=== PATIENT | male | born 1975 | race Caucasian/White ===

== ENCOUNTER 2017-05-19 15:34 | Emergency (ER) | payer MEDICAID ==
[~2017-05-19] VITALS: Ht 172.7 cm; Wt 75.0 kg
[2017-05-19 15:38] VITALS: Ht 172.7 cm; Wt 75.0 kg
[2017-05-19 16:35] LABS: BASOPHILS % 0.5 % (0.0-2.0); EOSINOPHILS # 0.3 10^3/ul (0.0-0.5); EOSINOPHILS % 2.9 % (0.0-7.0); HEMATOCRIT 36.4 % (42.0-52.0); HEMOGLOBIN 11.5 g/dl (14.0-18.0); LYMPHOCYTES # 1.8 10^3/ul (0.8-2.9); LYMPHOCYTES % 20.4 % (15.0-51.0); MEAN CORPUSCULAR HEMOGLOBIN 26.6 pg (29.0-33.0); MEAN CORPUSCULAR HGB CONC 31.6 g/dl (32.0-37.0); MEAN CORPUSCULAR VOLUME 84.1 fl (82.0-101.0); MEAN PLATELET VOLUME 8.2 fl (7.4-10.4); MONOCYTE # 0.7 10^3/ul (0.3-0.9); MONOCYTES % 8.1 % (0.0-11.0); NEUTROPHILS % 67.2 % (39.0-77.0); PLATELET COUNT 270 10^3/UL (140-415); RED BLOOD COUNT 4.33 10^6/ul (4.70-6.10); WHITE BLOOD COUNT 8.9 10^3/ul (4.8-10.8)
--- NOTE | 2017-05-19 16:50 | PSY ---
Date/Time of Note Date/Time of Note DATE: 05/19/17 TIME: 16:45 Psychiatric Subjective Eval Consent Pt consented to telemedicine: Yes Subjective Evaluation Patient location: emergency Chief Complaint: Patients states that he is having Suicidal thoughts Reason for consult: Suicidal ideation History of present illness Pt is a 41 year old male with a reported history of schizophrenia, depression and ptsd. He was released from an inpatient unit one week ago and was supposed to be moving into a new place to live on Monday. In the meantime, he has been staying at a [employer] (except last night, he slept outside). Pt reports there is some bank hold up which is preventing him from moving and he is very confused and anxious. Patient states he hears voices and has paranoid thoughts. He is having suicidal thinking but no acute plan. He is very concerned about what is happening and is not sure how to handle it. Pt presented to the ER because he was feeling confused and having suicidal thoughts. Past psychiatric history As noted above. Multiple inpatient admissions. At 18 years old came close to overdosing but did not follow through. He takes 15mg of Abilify, 60 to 80mg of Prozac and Xanax 1-2mg as needed Hospitalization: yes Family History Mom appears to have had issues Medical history Denies Substance Abuse Substance use: No known substance abuse Social History Marital status: single Level of education: HS Occupation/Nursing Home: NA Psychiatric Objective Eval Mental Status Examination: Appearance: Poor Hygiene Eye Contact: Good Psychomotor Activity: Slow Behavior: Guarded Speech: Soft AFFECT: Flat Mood: Anxious Though Process: Linear Thought Content: Hallucinations Suicidal: Yes Homicidal: No On 72 hour hold: No Orientation: x3 Cognition: Alert Insight: Intact Judgement: Intact Attention Span: Intact Laboratory Results Laboratory Tests Test 05/19/17 16:20 White Blood Count 8.910^3/ul Red Blood Count 4.3310^6/ul Hemoglobin 11.5g/dl Hematocrit 36.4% Mean Corpuscular Volume 84.1fl Mean Corpuscular Hemoglobin 26.6pg Mean Corpuscular Hemoglobin Concent 31.6g/dl Red Cell Distribution Width 16.0% Platelet Count 29687^3/UL Mean Platelet Volume 8.2fl Neutrophils % 67.2% Lymphocytes % 20.4% Monocytes % 8.1% Eosinophils % 2.9% Basophils % 0.5% Nucleated Red Blood Cells % 0.0/100WBC Neutrophils # 6.010^3/ul Lymphocytes # 1.810^3/ul Monocytes # 0.710^3/ul Eosinophils # 0.310^3/ul Basophils # 0.010^3/ul Nucleated Red Blood Cells # 0.010^3/ul Assessment and Plan Assessment/Diagnosis [place] I: F20.9 Schizophrenia Recommendation/Plan Medication Management Per inpatient psychiatry Psychotherapy NA Pt. Caregiver/Family Education NA Follow-up/Disposition Recommend transfer to inpatient psychiatry. Pt is requesting admission and is voluntary. [id number] Recommendation: Voluntary admission HALEY CARLISLE May 19, 2017 16:50
[2017-05-19 17:01] LABS: ALANINE AMINOTRANSFERASE 40 IU/L (13-69); ALBUMIN 3.8 g/dl (3.3-4.9); ALBUMIN/GLOBULIN RATIO 1.35; ALKALINE PHOSPHATASE 89 IU/L (42-121); ANION GAP 12 (8-16); ASPARTATE AMINO TRANSFERASE 31 IU/L (15-46); BILIRUBIN,INDIRECT 0.1 mg/dl (0-1.1); BILIRUBIN,TOTAL 0.1 mg/dl (0.2-1.3); BLOOD UREA NITROGEN 11 mg/dl (7-20); CALCIUM 9.1 mg/dl (8.4-10.2); CARBON DIOXIDE 30 mmol/L (21-31); CHLORIDE 106 mmol/L (97-110); CREATININE 0.85 mg/dl (0.61-1.24); GLUCOSE 130 mg/dl (70-220); POTASSIUM 4.6 mmol/L (3.5-5.1); SODIUM 143 mmol/L (135-144); TOTAL PROTEIN 6.6 g/dl (6.1-8.1)
[2017-05-19 17:04] LABS: ACETAMINOPHEN < 10.0 ug/ml (10.0-30.0); ETHANOL < 10.0 mg/dl; SALICYLATE < 1.0 mg/dl (5.0-30.0)
--- NOTE | 2017-05-19 17:20 | ERD ---
ER Documentation Chief Complaint Date/Time DATE: 05/19/17 TIME: 17:18 Chief Complaint Patients states that he is having Suicidal thoughts HPI Patient is a 41-year-old male with post traumatic stress disorder, schizophrenia , and depression who presents with "mental problems". He said that he is having posttraumatic stress and depression. He feels suicidal ideation but has no plan at this time. He denies homicidal ideation. He has been having trouble with his living situation as well. Upon review of old medical records this is the patient's first visit to the emergency department. He cannot remember the name of his psychiatrist. ROS All systems reviewed and are negative except as per history of present illness. PMhx/Soc History of Surgery: Yes (right knee surgery ) Hx Psychiatric Problems: Yes (PTSD; SCHIZOPHRERNIA; DEPRESSION) Hx Miscellaneous Medical Probl: Yes (OSLEOSARCOMA) Hx Alcohol Use: No Hx Substance Use: No Hx Tobacco Use: Yes Smoking Status: Current every day smoker FmHx Family History: No diabetes Physical Exam Vitals Vital Signs Date Time Temp Pulse Resp B/P Pulse Ox O2 Delivery O2 Flow Rate FiO2 05/19/17 15:38 98.5 89 20 127/75 98 Physical Exam Const: No acute distress Head: Atraumatic Eyes: Normal Conjunctiva ENT: Normal External Ears, Nose and Mouth. Neck: Full range of motion..~ No meningismus. Resp: Clear to auscultation bilaterally Cardio: Regular rate and rhythm, no murmurs Abd: Soft, non tender, non distended. Normal bowel sounds Skin: Blister to the base of the right foot Back: No midline or flank tenderness Ext: No cyanosis, or edema Neur: Awake and alert Psych: Positive for suicidal ideation without plan Result Diagram: 05/19/17 1620 05/19/17 1620 Results 24 hrs Laboratory Tests Test 05/19/17 16:20 White Blood Count 8.910^3/ul Red Blood Count 4.3310^6/ul Hemoglobin 11.5g/dl Hematocrit 36.4% Mean Corpuscular Volume 84.1fl Mean Corpuscular Hemoglobin 26.6pg Mean Corpuscular Hemoglobin Concent 31.6g/dl Red Cell Distribution Width 16.0% Platelet Count 22422^3/UL Mean Platelet Volume 8.2fl Neutrophils % 67.2% Lymphocytes % 20.4% Monocytes % 8.1% Eosinophils % 2.9% Basophils % 0.5% Nucleated Red Blood Cells % 0.0/100WBC Neutrophils # 6.010^3/ul Lymphocytes # 1.810^3/ul Monocytes # 0.710^3/ul Eosinophils # 0.310^3/ul Basophils # 0.010^3/ul Nucleated Red Blood Cells # 0.010^3/ul Sodium Level 143mmol/L Potassium Level 4.6mmol/L Chloride Level 106mmol/L Carbon Dioxide Level 30mmol/L Anion Gap 12 Blood Urea Nitrogen 11mg/dl Creatinine 0.85mg/dl Glucose Level 130mg/dl Calcium Level 9.1mg/dl Total Bilirubin 0.1mg/dl Direct Bilirubin 0.00mg/dl Indirect Bilirubin 0.1mg/dl Aspartate Amino Transf (AST/SGOT) 31IU/L Alanine Aminotransferase (ALT/SGPT) 40IU/L Alkaline Phosphatase 89IU/L Total Protein 6.6g/dl Albumin 3.8g/dl Globulin 2.80g/dl Albumin/Globulin Ratio 1.35 Salicylates Level < 1.0mg/dl Acetaminophen Level < 10.0ug/ml Ethyl Alcohol Level < 10.0mg/dl Procedures/MDM Patient is a 41-year-old male presents with acute suicidal ideation. He has no plan at this time. He had a psychiatric evaluation who recommended a transfer for inpatient psychiatric treatment whether voluntary or involuntary. I believe that voluntary admission would be reasonable as the patient is agreeable. There is no sign of serious medical issue at this time. He has anemia but does not require transfusion. The rest of his laboratory studies are normal. Patient is now medically clear for psychiatric transfer. Departure Diagnosis: Primary Impression: Suicidal ideation Condition: DANNY Ferreira MD May 19, 2017 17:20
[2017-05-19 19:47] LABS: ADD UMIC YES; UR ASCORBIC ACID 40 mg/dL (NEGATIVE); UR BACTERIA FEW /HPF (NONE SEEN); UR BILIRUBIN (Dip) NEGATIVE (NEGATIVE); UR BLOOD (Dip) NEGATIVE (NEGATIVE); UR CLARITY CLOUDY (CLEAR); UR COLOR YELLOW (YELLOW); UR GLUCOSE (Dip) NEGATIVE (NEGATIVE); UR KETONES (Dip) NEGATIVE (NEGATIVE); UR LEUKOCYTE ESTERASE (Dip) NEGATIVE Leu/ul (NEGATIVE); UR NITRITE (Dip) NEGATIVE (NEGATIVE); UR RBC 3 /HPF (0-5); UR SPECIFIC GRAVITY (Dip) 1.019 (1.003-1.030); UR TOTAL PROTEIN (Dip) NEGATIVE (NEGATIVE); UR UROBILINOGEN (Dip) NEGATIVE (NEGATIVE)
[2017-05-19 19:50] LABS: BARBITURATES Negative (NEGATIVE); BENZODIAZEPINES Negative (NEGATIVE); CANNABINOIDS Positive (NEGATIVE); COCAINE Negative (NEGATIVE); OPIATES Negative (NEGATIVE)
[2017-05-19] MEDS ORDERED: IBUPROFEN 800 MG TAB PO ONE (20:30)
[2017-05-19 23:11] VITALS: BP 124/87; PULSE 63; RESP 20
== END 2017-05-19 23:13 | disposition short-term general hospital (02) ==
LOC: E/R 15:34
DX: R45.851 Suicidal ideations (principal); F17.210 Nicotine dependence, cigarettes, uncomplicated; R40.2142 Coma scale, eyes open, spontaneous, at arrival to emergency department; R40.2252 Coma scale, best verbal response, oriented, at arrival to emergency department; R40.2362 Coma scale, best motor response, obeys commands, at arrival to emergency department
CPT/HCPCS: 80053; 80306; 80307; 81001; 85025; Z7502; Z7610

== ENCOUNTER 2017-07-26 10:19 | Emergency (ER) | payer SELFPAY ==
[2017-07-26] MEDS ORDERED: BUPR-75 PO (17:31)
[2017-07-26] MEDS ORDERED: ALPR2TAB PO (17:31)
[2017-07-26] MEDS ORDERED: FLUO20CA38 PO (17:31)
== END 2017-07-26 11:54 | disposition left against medical advice (07) ==
LOC: E/R 10:19
DX: Z53.21 Procedure and treatment not carried out due to patient leaving prior to being seen by health care provider (principal)

== ENCOUNTER 2017-07-26 16:31 | Emergency (ER) | payer MEDICAID ==
[~2017-07-26] VITALS: Wt 79.8 kg
[2017-07-26] MEDS ORDERED: ALPR2TAB PO (17:31)
[2017-07-26] MEDS ORDERED: FLUO20CA38 PO (17:31)
[2017-07-26] MEDS ORDERED: BUPR-75 PO (17:31)
--- NOTE | 2017-07-26 17:37 | ERD ---
ER Documentation Chief Complaint Chief Complaint med refills HPI This is a 41-year-old male presents today for medication refill. Patient states he will see his primary care doctor on August 05 and is requesting Prozac, Wellbutrin and Xanax. Patient is asymptomatic at this time. ROS 12 point review of systems was done, all negative except per HPI. Medications Home Meds Active Scripts Alprazolam* (Xanax*) 2 Mg Tablet, 2 MG PO Q8H Y for ANXIETY, #10 TAB Prov:SUSANTIMGINI C 07/26/17 Fluoxetine Hcl* (Prozac*) 20 Mg Capsule, 60 MG PO DAILY for 18 Days, CAP Prov:SUSAN,GINI C 07/26/17 Bupropion Hcl* (Wellbutrin XL*) 150 Mg Tab.sr.24h, 150 MG PO DAILY for 18 Days, TAB.SA Prov:SUSANGINI C 07/26/17 PMhx/Soc History of Surgery: Yes (right knee surgery ) Hx Psychiatric Problems: Yes (PTSD; SCHIZOPHRERNIA; DEPRESSION) Hx Miscellaneous Medical Probl: Yes (OSLEOSARCOMA) Hx Alcohol Use: No Hx Substance Use: No Hx Tobacco Use: Yes Smoking Status: Current every day smoker Physical Exam Vitals Vital Signs Date Time Temp Pulse Resp B/P Pulse Ox O2 Delivery O2 Flow Rate FiO2 07/26/17 16:33 98.7 110 20 124/81 97 Physical Exam GENERAL: The patient is well developed and appropriate for usual state of health , in no apparent distress. HEENT: Atraumatic. CHEST: Clear to auscultation bilaterally. There are no rales, wheezes or rhonchi. HEART: Regular rate and rhythm. No murmurs, clicks, rubs or gallops. NEURO: Alert and oriented. SKIN: The skin is warm and dry. Procedures/MDM This is a 41-year-old male presents to the ER for medication refill. Patient is currently asymptomatic. Patient will be given his medication, Xanax will only be given a small amount. To follow-up with his primary care doctor within 1-2 days return to ER sooner if symptoms worsen. My medical decision making sure with the patient understands and agrees to plan. Departure Diagnosis: Primary Impression: Encounter for medication refill Condition: Stable Patient Instructions: Taking Medicine Safely Additional Instructions: Call your primary care doctor TOMORROW for an appointment during the next 1-2 days.See the doctor sooner or return here if your condition worsens before your appointment time. GINI DAVIS Jul 26, 2017 17:37
== END 2017-07-26 18:07 | disposition home or self-care (01) ==
LOC: FTE 16:31
DX: Z76.0 Encounter for issue of repeat prescription (principal); F17.210 Nicotine dependence, cigarettes, uncomplicated
CPT/HCPCS: 99281

== ENCOUNTER 2017-08-31 14:31 | Emergency (ER) | END 2017-08-31 19:58 | disposition left against medical advice (07) ==

== ENCOUNTER 2017-09-04 14:04 | Emergency (ER) | END 2017-09-04 15:57 | disposition home or self-care (01) ==

== ENCOUNTER 2017-10-13 11:46 | Emergency (ER) | END 2017-10-13 14:44 | disposition home or self-care (01) ==

== ENCOUNTER 2017-12-08 06:40 | Emergency (ER) | END 2017-12-08 16:14 ==

== ENCOUNTER 2018-02-21 14:51 | Emergency (ER) | END 2018-02-22 08:58 ==

== ENCOUNTER 2018-02-27 16:59 | Emergency (ER) | END 2018-02-27 18:40 | disposition home or self-care (01) ==

== ENCOUNTER 2018-03-08 16:50 | Emergency (ER) | END 2018-03-08 19:40 | disposition left against medical advice (07) ==

== ENCOUNTER 2018-03-23 19:43 | Emergency (ER) | END 2018-03-23 20:31 | disposition home or self-care (01) ==

== ENCOUNTER 2018-04-05 12:04 | Emergency (ER) | END 2018-04-05 13:04 | disposition home or self-care (01) ==

== ENCOUNTER 2018-04-21 13:59 | Emergency (ER) | END 2018-04-22 00:55 ==

== ENCOUNTER 2018-05-03 11:38 | Emergency (ER) | END 2018-05-03 13:32 | disposition home or self-care (01) ==

== ENCOUNTER 2018-07-07 08:28 | Emergency (ER) | END 2018-07-07 09:44 | disposition home or self-care (01) ==

== ENCOUNTER 2018-07-20 06:06 | Emergency (ER) | END 2018-07-20 17:37 ==

== ENCOUNTER 2018-08-20 18:12 | Emergency (ER) | payer OTHER ==
[~2018-08-20] VITALS: Ht 172.7 cm; Wt 83.7 kg
[~2018-08-20 18:12] MED LIST: ALPR2TAB PO; ARIP30TA4 PO; BUPR-165 PO; BUPR-75 PO; BUSP10TA2 PO; FLUO20CA38 PO; FLUO40CA10 PO; HYDR-4011 PO
[2018-08-20 18:14] VITALS: Ht 172.7 cm; Wt 83.7 kg
--- NOTE | 2018-08-20 19:28 | ERD ---
ER Documentation Chief Complaint Chief Complaint FELT LIKE HURTING SELF HAS FINACIAL PROBLEMS HPI This is a 42-year-old male known by me who is here for depression and stress reaction. Patient tells me that he is having a lot of financial struggles and was expecting some money to come in and today he learned that it is not going to come. He said this overwhelmed him because now he is bankrupt. He says he is stressing out about the financial situation in his life came here because he does not know what else to do. He says he takes Abilify and Depakote and has been taking them. He repeated to me twice that he is not suicidal or homicidal, but does not know what to do about his situation and feels overwhelmed about it and just wants to talk to a psychiatrist because he thinks he needs medication adjustments ROS All systems reviewed and are negative except as per history of present illness. Medications Home Meds Active Scripts Alprazolam* (Xanax*) 0.5 Mg Tab, 0.5 MG PO Q8H PRN for ANXIETY, #10 TAB Prov:ONEAL BANERJEE DO 08/20/18 Aripiprazole* (Abilify*) 30 Mg Tablet, 30 MG PO DAILY, #30 TAB Prov:JOSÉ MIGUEL CALLAWAY MD 07/07/18 Buspirone Hcl* (Buspirone Hcl*) 10 Mg Tab, 10 MG PO DAILY, #30 TAB Prov:JOSÉ MIGUEL CALLAWAY MD 07/07/18 Bupropion Hcl* (Wellbutrin XL*) 150 Mg Tab.sr.24h, 150 MG PO DAILY, #30 TAB.SA Prov:JOSÉ MIGUEL CALLAWAY MD 07/07/18 Fluoxetine Hcl* (Prozac*) 40 Mg Capsule, 60 MG PO DAILY, #30 CAP Prov:JOSÉ MIGUEL CALLAWAY MD 07/07/18 Alprazolam* (Xanax*) 2 Mg Tablet, 2 MG PO Q8H PRN for ANXIETY, #20 TAB Prov:JOSÉ MIGUEL CALLAWAY MD 07/07/18 Fluoxetine Hcl* (Prozac*) 20 Mg Capsule, 60 MG PO DAILY, #90 CAP Prov:MING MIRZA PA-C 05/03/18 Aripiprazole* (Abilify*) 30 Mg Tablet, 30 MG PO DAILY, #30 TAB Prov:MNIG MIRZA PA-C 05/03/18 Alprazolam* (Xanax*) 2 Mg Tablet, 2 MG PO Q8H PRN for ANXIETY, #4 TAB Prov:MING MIRZA PA-C 05/03/18 Bupropion Hcl* (Wellbutrin SR*) 150 Mg Tablet.sa, 150 MG PO DAILY, #30 TAB.SA Prov:MING MIRZA PA-C 05/03/18 Hydrocodone/Acetaminophen ([place] 5-325 Tablet) 1 Each Tablet, 1 TAB PO Q6H PRN for PAIN, #10 TAB Prov:GIAN OCAMPO DO 04/05/18 Fluoxetine Hcl* (Prozac*) 20 Mg Capsule, 60 MG PO DAILY, #42 CAP Prov:DIAMOND SHIPMAN PA-C 03/23/18 Alprazolam* (Xanax*) 2 Mg Tablet, 2 MG PO Q8H PRN for ANXIETY, #5 TAB Prov:DIAMOND SHIPMAN PA-C 03/23/18 Reported Medications Bupropion Hcl* (Wellbutrin XL*) 150 Mg Tab.sr.24h, 150 MG PO DAILY, TAB.SA 12/08/17 Allergies Allergies: Coded Allergies: No Known Allergy (Unverified , 05/03/18) PMhx/Soc History of Surgery: No Anesthesia Reaction: No Hx Neurological Disorder: No Hx Respiratory Disorders: No Hx Cardiac Disorders: No Hx Psychiatric Problems: Yes (depression and anxiety) Hx Miscellaneous Medical Probl: No Hx Alcohol Use: No Hx Substance Use: No Hx Tobacco Use: No FmHx Family History: No coronary disease Physical Exam Vitals Vital Signs Date Temp Pulse Resp B/P (MAP) Pulse Ox O2 O2 Flow FiO2 Time Delivery Rate 08/20/18 97.5 113 18 141/92 100 18:14 (108) Physical Exam Const: Well-developed, well-nourished Head: Atraumatic, normocephalic Eyes: Normal Conjunctiva, PERRLA, EOMI, normal sclera, no nystagmus ENT: Normal External Ears, Nose and Mouth, moist mucus membranes. Neck: Full range of motion. No meningismus, no lymphadenopathy. Resp: Clear to auscultation bilaterally, no wheezing, rhonchi, rales Cardio: Regular rate and rhythm, no murmurs, S1 S2 present Abd: Soft, non tender x 4, non distended. Normal bowel sounds, no guarding or rebound, no pulsitile abdominal masses or bruits Skin: No petechiae or rashes, no ecchymosis , no maculopapular rash Back: No midline or flank tenderness Ext: No cyanosis, or edema, FROM x 4, normal inspection, neurovascularly intact x 4 Neur: Awake and alert, STR 5/5 x 4, sensation intact x 4, no focal findings, cerebellum intact Psych: Flat affect Results 24 hrs Current Medications Medications Dose Sig/Jamel Start Time Status Last (Trade) Ordered Route PRN Stop Time Admin Dose Reason Admin Alprazolam 0.5 mg ONCE ONCE 08/20/18 (Xanax) PO 21:00 08/20/18 21:01 Procedures/MDM We will have a telemetry psychiatrist to speak with him now There is no psychiatrist available. Had extensive discussion with the patient, he is not suicidal or homicidal he just feels overwhelmed with financial stress. He is just asking for something to help him calm down to once a Xanax. Gave the patient strict warning signs to return. Patient feels much better at this time, and vital signs are normal, symptoms have improved. I did give strict instructions to return to the ED if symptoms continue or worsen, patient will otherwise follow-up with primary care physician. Patient understood instructions and agreed to plan. Disclaimer: Inadvertent spelling and grammatical errors are likely due to EHR/dictation software use and do not reflect on the overall quality of patient care. Also, please note that the electronic time recorded on this note does not necessarily reflect the actual time of the patient encounter. Departure Diagnosis: Primary Impression: Depression Depression Type: unspecified Qualified Codes: F32.9 - Major depressive disorder, single episode, unspecified Condition: ONEAL Prieto DO Aug 20, 2018 19:28
[2018-08-20] MEDS ORDERED: ALPR0.5T PO (20:42)
[2018-08-20] MEDS ORDERED: ALPRAZOLAM 0.25 MG TAB PO ONE (21:00)
[2018-08-20 21:02] VITALS: BP 133/74; PULSE 78; RESP 20
== END 2018-08-20 21:07 | disposition home or self-care (01) ==
LOC: E/R 18:12
DX: F32.9 Major depressive disorder, single episode, unspecified (principal); R40.2142 Coma scale, eyes open, spontaneous, at arrival to emergency department; R40.2362 Coma scale, best motor response, obeys commands, at arrival to emergency department; R40.2252 Coma scale, best verbal response, oriented, at arrival to emergency department
CPT/HCPCS: Z7502; Z7610; 99283

== ENCOUNTER 2018-09-15 07:03 | Emergency (ER) | payer OTHER ==
[~2018-09-15] VITALS: Wt 78.0 kg
[~2018-09-15 07:03] MED LIST changes: +ALPR0.5T PO
[2018-09-15 07:07] VITALS: BP 149/90; PULSE 90; RESP 18
[2018-09-15] MEDS ORDERED: FLUO40CA PO (08:03)
[2018-09-15] MEDS ORDERED: BUPR-165 PO (08:03)
[2018-09-15] MEDS ORDERED: ALPR2TAB PO (08:03)
--- NOTE | 2018-09-15 08:06 | ERD ---
ER Documentation Chief Complaint Chief Complaint med refill HPI 42-year-old male presents with a history of anxiety depression requesting a refill of his medication. He is having difficulty with some insurance and financial issues. He is hoping to have a primary care and psychiatry service next week. Denies any homicidal or suicidal ideation. He has been here before for suicidal ideation but denies currently. ROS All systems reviewed and are negative except as per history of present illness. Medications Home Meds Active Scripts Alprazolam* (Xanax*) 2 Mg Tablet, 2 MG PO q day PRN for ANXIETY, #14 TAB Prov:BASHIR JAIN MD 09/15/18 Bupropion Hcl* (Wellbutrin SR*) 150 Mg Tablet.sa, 150 MG PO DAILY, #30 TAB.SA Prov:BASHIR JAIN MD 09/15/18 Fluoxetine Hcl* (Fluoxetine Hcl*) 40 Mg Capsule, 80 MG PO DAILY, #60 CAP Prov:BASHIR JAIN MD 09/15/18 Alprazolam* (Xanax*) 0.5 Mg Tab, 0.5 MG PO Q8H PRN for ANXIETY, #10 TAB Prov:ONEAL BANERJEE DO 08/20/18 Aripiprazole* (Abilify*) 30 Mg Tablet, 30 MG PO DAILY, #30 TAB Prov:JOSÉ MIGUEL CALLAWAY MD 07/07/18 Buspirone Hcl* (Buspirone Hcl*) 10 Mg Tab, 10 MG PO DAILY, #30 TAB Prov:JOSÉ MIGUEL CALLAWAY MD 07/07/18 Bupropion Hcl* (Wellbutrin XL*) 150 Mg Tab.sr.24h, 150 MG PO DAILY, #30 TAB.SA Prov:JOSÉ MIGUEL CALLAWAY MD 07/07/18 Fluoxetine Hcl* (Prozac*) 40 Mg Capsule, 60 MG PO DAILY, #30 CAP Prov:JOSÉ MIGUEL CALLAWAY MD 07/07/18 Alprazolam* (Xanax*) 2 Mg Tablet, 2 MG PO Q8H PRN for ANXIETY, #20 TAB Prov:JOSÉ MIGUEL CALLAWYA MD 07/07/18 Fluoxetine Hcl* (Prozac*) 20 Mg Capsule, 60 MG PO DAILY, #90 CAP Prov:MING MIRZA PA-C 05/03/18 Aripiprazole* (Abilify*) 30 Mg Tablet, 30 MG PO DAILY, #30 TAB Prov:MING MIRZA PA-C 05/03/18 Alprazolam* (Xanax*) 2 Mg Tablet, 2 MG PO Q8H PRN for ANXIETY, #4 TAB Prov:MING MIRZA PA-C 05/03/18 Bupropion Hcl* (Wellbutrin SR*) 150 Mg Tablet.sa, 150 MG PO DAILY, #30 TAB.SA Prov:MING MIRZA PA-C 05/03/18 Hydrocodone/Acetaminophen ([place] 5-325 Tablet) 1 Each Tablet, 1 TAB PO Q6H PRN for PAIN, #10 TAB Prov:GIAN OCAMPO DO 04/05/18 Fluoxetine Hcl* (Prozac*) 20 Mg Capsule, 60 MG PO DAILY, #42 CAP Prov:DIAMOND SHIPMAN PA-C 03/23/18 Alprazolam* (Xanax*) 2 Mg Tablet, 2 MG PO Q8H PRN for ANXIETY, #5 TAB Prov:DIAMOND SHIPMAN PA-C 03/23/18 Reported Medications Bupropion Hcl* (Wellbutrin XL*) 150 Mg Tab.sr.24h, 150 MG PO DAILY, TAB.SA 12/08/17 Allergies Allergies: Coded Allergies: No Known Allergy (Unverified , 05/03/18) PMhx/Soc History of Surgery: No Anesthesia Reaction: No Hx Neurological Disorder: No Hx Respiratory Disorders: No Hx Cardiac Disorders: No Hx Psychiatric Problems: Yes (depression and anxiety) Hx Miscellaneous Medical Probl: No Hx Alcohol Use: No Hx Substance Use: No Hx Tobacco Use: No FmHx Family History: No diabetes, No coronary disease, No other Physical Exam Vitals Vital Signs Date Temp Pulse Resp B/P (MAP) Pulse Ox O2 O2 Flow FiO2 Time Delivery Rate 09/15/18 98.1 90 18 149/90 99 07:07 (109) Physical Exam Const: No acute distress Head: Atraumatic Eyes: Normal Conjunctiva ENT: Normal External Ears, Nose and Mouth. Neck: Full range of motion. No meningismus. Resp: Clear to auscultation bilaterally Cardio: Regular rate and rhythm, no murmurs Abd: Soft, non tender, non distended. Normal bowel sounds Skin: No petechiae or rashes Back: No midline or flank tenderness Ext: No cyanosis, or edema Neur: Awake and alert Psych: Normal Mood and Affect. Denies homicidal or suicidal ideations. Procedures/MDM Patient notes with request for refill for fluoxetine, Wellbutrin, Xanax. Patient was given a short course until he can see his primary doctor or psychiatry. Patient denies any homicidal or suicidal ideation is able to navigate the community without signs or symptoms of grave disability. Patient was advised on taking medication safely, avoiding driving, operating heavy machinery and only take benzodiazepine infrequently as needed. Cures review shows last 1 week supply of alprazolam 24 days ago. the patient was stable with no new complaints during the ER course. Clinically, there is no current evidence to suggest meningitis, sepsis, acute abdomen, pneumonia, stroke, acute coronary syndrome, pulmonary embolism, aortic dissection or any other emergent condition appearing to require further evaluation or hospitalization. Patient counseled regarding my diagnostic impression and care plan. Prior to discharge all questions answered. Pt agrees with treatment plan and understands strict return precautions. Pt is instructed to follow up with primary care provider within 24- 48 hours. Precautionary instructions provided including instructions to return to the ER if not improving or for any worsening or changing symptoms or concerns. Departure Diagnosis: Primary Impression: Encounter for medication refill Additional Impression: Psychiatric diagnosis Condition: Stable Patient Instructions: Taking Medicine Safely Referrals: [facility] YOU HAVE RECEIVED A MEDICAL SCREENING EXAM AND THE RESULTS INDICATE THAT YOU DO NOT HAVE A CONDITION THAT REQUIRES URGENT TREATMENT IN THE EMERGENCY DEPARTMENT. FURTHER EVALUATION AND TREATMENT OF YOUR CONDITION CAN WAIT UNTIL YOU ARE SEEN IN YOUR DOCTORS OFFICE WITHIN THE NEXT 1-2 DAYS. IT IS YOUR RESPONSIBILITY TO MAKE AN APPOINTMENT FOR FOLOW-UP CARE. IF YOU HAVE A PRIMARY DOCTOR --you should call your primary doctor and schedule an appointment IF YOU DO NOT HAVE A PRIMARY DOCTOR YOU CAN CALL OUR PHYSICIAN REFERRAL HOTLINE AT IF YOU CAN NOT AFFORD TO SEE A PHYSICIAN YOU CAN CHOSE FROM THE FOLLOWING [facility] CLINICS [facility] [address] [facility]. [facility] [address] [facility]. [facility] [address] [facility] [address] [facility] [address] [facility]. [facility] [address] Additional Instructions: See primary doctor for follow-up or for new or worsening symptoms. BASHIR JAIN MD Sep 15, 2018 08:06
== END 2018-09-15 08:30 | disposition home or self-care (01) ==
LOC: FTE 07:03
DX: F99 Mental disorder, not otherwise specified (principal)
CPT/HCPCS: 99281

== ENCOUNTER 2018-10-08 06:36 | Emergency (ER) | payer OTHER ==
[~2018-10-08] VITALS: Ht 167.6 cm; Wt 81.8 kg
[~2018-10-08 06:36] MED LIST changes: +FLUO40CA PO
[2018-10-08 06:38] VITALS: BP 153/110; PULSE 100; RESP 20; Ht 167.6 cm; Wt 81.8 kg
[2018-10-08] MEDS ORDERED: ARIP30TA4 PO (08:36)
[2018-10-08] MEDS ORDERED: DIVA-16 PO (08:36)
--- NOTE | 2018-10-08 08:50 | ERD ---
ER Documentation Chief Complaint Chief Complaint Patient here to refill his psych meds Abilify and Depakote HPI 42-year-old male presents for medication refill. Patient would like his Abilify and Depakote refilled. He states that the Depakote has really helped him and he is going to follow-up with a psychiatrist in order to be properly managed with this medication but in the meantime would like to refill to get him through until then. Denies any suicidal or homicidal ideation. Denies hallucinations. Unspecified psychiatric condition, otherwise no history. Denies allergies. Denies surgeries. Denies alcohol, tobacco, drug use. Up to date on vaccines. ROS All systems reviewed and are negative except as per history of present illness. Medications Home Meds Active Scripts Aripiprazole* (Abilify*) 30 Mg Tablet, 30 MG PO DAILY, #30 TAB Prov:ROLAND EPPS 10/08/18 Divalproex Sodium* (Divalproex Sodium*) 500 Mg Tablet.dr, 500 MG PO BID, #28 TAB Prov:ROLAND EPPS 10/08/18 Alprazolam* (Xanax*) 2 Mg Tablet, 2 MG PO q day PRN for ANXIETY, #14 TAB Prov:BASHIR JAIN MD 09/15/18 Bupropion Hcl* (Wellbutrin SR*) 150 Mg Tablet.sa, 150 MG PO DAILY, #30 TAB.SA Prov:BASHIR JAIN MD 09/15/18 Fluoxetine Hcl* (Fluoxetine Hcl*) 40 Mg Capsule, 80 MG PO DAILY, #60 CAP Prov:BASHIR JAIN MD 09/15/18 Alprazolam* (Xanax*) 0.5 Mg Tab, 0.5 MG PO Q8H PRN for ANXIETY, #10 TAB Prov:ONEAL BANERJEE DO 08/20/18 Buspirone Hcl* (Buspirone Hcl*) 10 Mg Tab, 10 MG PO DAILY, #30 TAB Prov:JOSÉ MIGUEL CALLAWAY MD 07/07/18 Bupropion Hcl* (Wellbutrin XL*) 150 Mg Tab.sr.24h, 150 MG PO DAILY, #30 TAB.SA Prov:JOSÉ MIGUEL CALLAWAY MD 07/07/18 Fluoxetine Hcl* (Prozac*) 40 Mg Capsule, 60 MG PO DAILY, #30 CAP Prov:JOSÉ MIGUEL CALLAWAY MD 07/07/18 Alprazolam* (Xanax*) 2 Mg Tablet, 2 MG PO Q8H PRN for ANXIETY, #20 TAB Prov:JOSÉ MIGUEL CALLAWAY MD 07/07/18 Fluoxetine Hcl* (Prozac*) 20 Mg Capsule, 60 MG PO DAILY, #90 CAP Prov:MING MIRZA PA-C 05/03/18 Aripiprazole* (Abilify*) 30 Mg Tablet, 30 MG PO DAILY, #30 TAB Prov:MING MIRZA PA-C 05/03/18 Alprazolam* (Xanax*) 2 Mg Tablet, 2 MG PO Q8H PRN for ANXIETY, #4 TAB Prov:MING MIRZA PA-C 05/03/18 Bupropion Hcl* (Wellbutrin SR*) 150 Mg Tablet.sa, 150 MG PO DAILY, #30 TAB.SA Prov:MING MIRZA PA-C 05/03/18 Hydrocodone/Acetaminophen ([place] 5-325 Tablet) 1 Each Tablet, 1 TAB PO Q6H PRN for PAIN, #10 TAB Prov:GIAN OCAMPO DO 04/05/18 Fluoxetine Hcl* (Prozac*) 20 Mg Capsule, 60 MG PO DAILY, #42 CAP Prov:DIAMOND SHIPMAN PA-C 03/23/18 Alprazolam* (Xanax*) 2 Mg Tablet, 2 MG PO Q8H PRN for ANXIETY, #5 TAB Prov:DIAMOND SHIPMAN PA-C 03/23/18 Reported Medications Bupropion Hcl* (Wellbutrin XL*) 150 Mg Tab.sr.24h, 150 MG PO DAILY, TAB.SA 12/08/17 Allergies Allergies: Coded Allergies: No Known Allergy (Unverified , 05/03/18) PMhx/Soc History of Surgery: No Anesthesia Reaction: No Hx Neurological Disorder: No Hx Respiratory Disorders: No Hx Cardiac Disorders: No Hx Psychiatric Problems: Yes (depression and anxiety) Hx Miscellaneous Medical Probl: No Hx Alcohol Use: No Hx Substance Use: No Hx Tobacco Use: No FmHx Family History: No diabetes, No coronary disease, No other Physical Exam Vitals Vital Signs Date Temp Pulse Resp B/P (MAP) Pulse Ox O2 O2 Flow FiO2 Time Delivery Rate 10/08/18 97.3 100 20 153/110 100 06:38 (124) Physical Exam Const: No acute distress Head: Atraumatic Eyes: Normal Conjunctiva ENT: Normal External Ears, Nose and Mouth. Neck: Full range of motion. No meningismus. Resp: Clear to auscultation bilaterally Cardio: Regular rate and rhythm, no murmurs Abd: Soft, non tender, non distended. Normal bowel sounds Skin: No petechiae or rashes Back: No midline or flank tenderness Ext: No cyanosis, or edema Neur: Awake and alert Psych: Normal Mood and Affect Procedures/MDM 42-year-old male presents for medication refill. Patient would like his Abilify and Depakote refilled. He states that the Depakote has really helped him and he is going to follow-up with a psychiatrist in order to be properly managed with this medication but in the meantime would like to refill to get him through until then. I have low first suspicion for acute psychosis, suicidal or homicidal ideation, meningitis, or other emergent condition. Patient was given refill for Abilify and Depakote the told that this needs to be managed on outpatient basis the psychiatrist. Patient understood and agreed to follow up with psychiatrist upon discharge. Patient discharged with strict ER precautions. Patient advised to follow up with PMD. All questions answered at discharge. Departure Diagnosis: Primary Impression: Encounter for medication refill Additional Impression: Psychiatric diagnosis Condition: Stable Patient Instructions: Depression Affects Your Mind and Body, Depression Referrals: [facility] YOU HAVE RECEIVED A MEDICAL SCREENING EXAM AND THE RESULTS INDICATE THAT YOU DO NOT HAVE A CONDITION THAT REQUIRES URGENT TREATMENT IN THE EMERGENCY DEPARTMENT. FURTHER EVALUATION AND TREATMENT OF YOUR CONDITION CAN WAIT UNTIL YOU ARE SEEN IN YOUR DOCTORS OFFICE WITHIN THE NEXT 1-2 DAYS. IT IS YOUR RESPONSIBILITY TO MAKE AN APPOINTMENT FOR FOLOW-UP CARE. IF YOU HAVE A PRIMARY DOCTOR --you should call your primary doctor and schedule an appointment IF YOU DO NOT HAVE A PRIMARY DOCTOR YOU CAN CALL OUR PHYSICIAN REFERRAL HOTLINE AT IF YOU CAN NOT AFFORD TO SEE A PHYSICIAN YOU CAN CHOSE FROM THE FOLLOWING [facility] [address] [facility] [address] [facility] [address] [facility] [address] [facility] [address] [facility]. [facility]. [address] Additional Instructions: FOLLOW UP WITH YOUR PRIMARY CARE PHYSICIAN TOMORROW.Return to this facility if you are not improving as expected. ROLAND EPPS Oct 08, 2018 08:50
== END 2018-10-08 08:53 | disposition home or self-care (01) ==
LOC: FTE 06:36
DX: F99 Mental disorder, not otherwise specified (principal)
CPT/HCPCS: 99281

== ENCOUNTER 2018-10-20 22:32 | Emergency (ER) | payer OTHER ==
[~2018-10-20] VITALS: Ht 182.9 cm; Wt 84.3 kg
[~2018-10-20 22:32] MED LIST changes: +DIVA-16 PO
[2018-10-20 22:35] VITALS: BP 156/94; PULSE 109; RESP 20; Ht 182.9 cm; Wt 84.3 kg
--- NOTE | 2018-10-21 01:43 | PSY ---
Date/Time of Note Date/Time of Note DATE: 10/21/18 TIME: 01:16 Psychiatric Subjective Eval Consent Pt consented to telemedicine: Yes Subjective Evaluation Patient location: emergency Chief Complaint: Pt reports he is depressed and has thought of hurting himself by starving History of present illness He stated, "I've been having a big struggle with these banksters..." He stated these are bankers who take peoples' money. He stated when his dad he left money to these individuals who decided to keep it instead of giving it to him. He stated he hasn't been able to find a job or obtain any income. He gets frustrated and down about the fact that he cannot find a job. He stated he developed "weird thoughts" about cutting himself. He stated he scratched his skin about 15 minutes before he presented to the ED. He stated that he is not thinking of starving himself but is worried about being in a situation where he would not have food as he was previously homeless and had to worry about where his next meal came from. He repeatedly denied suicidal thoughts or intentions as well as violent thoughts or urges. We discussed outpatient mental health services which could offer more comprehensive support for him; he said he never looked into that but felt it was a good idea. Past psychiatric history Diagnosed with ADHD, Schizophrenia, depression. Taking Depakote and Abilify presently. History of scratching himself with his fingers but never with a knife or weapon. Took an overdose of sleeping pills when he was 18. Hospitalization: yes Family History Father with Schizophrenia and mother was "sociopathic." Medical history Problems Medical Problems: (1) Dental caries Status: Acute (2) Depression Status: Acute (3) Depression Status: Acute (4) Encounter for medication refill Status: Acute (5) Encounter for medication refill Status: Acute (6) Methamphetamine abuse Status: Acute (7) Pain, dental Status: Acute (8) Patient left after triage Status: Acute (9) Patient left without being seen Status: Acute (10) Patient left without being seen Status: Acute (11) Psychiatric diagnosis Status: Acute (12) Psychiatric diagnosis Status: Acute (13) Suicidal ideation Status: Acute (14) Suicidal ideation Status: Acute (15) Suicidal ideation Status: Acute (16) Suicidal ideation Status: Acute (17) Suicidal ideations Status: Acute (18) Toothache Status: Acute Allergies: Coded Allergies: No Known Allergy (Unverified , 05/03/18) Substance Abuse Substance use: No known substance abuse Substance abuse history: No Prior substance abuse treatmen: No Social History Marital status: single Level of education: Some college DPA/Conservatorship: No Occupation/Long-Term: None currently Psychiatric Objective Eval Mental Status Examination: Appearance: Groomed Eye Contact: Fair Psychomotor Activity: Normal Behavior: Cooperative Speech: Clear AFFECT: Blunt Mood: Depressed Though Process: Linear Thought Content: Normal (Talked about "banksters" but not clear that this is a delusion) Homicidal: No On 72 hour hold: No Orientation: x4 Cognition: Alert Insight: Intact Judgement: Intact Attention Span: Intact Laboratory Results Laboratory Tests Test 10/20/18 23:41 10/20/18 23:59 White Blood Count 8.2 10^3/ul Red Blood Count 4.68 10^6/ul Hemoglobin 13.4 g/dl Hematocrit 41.0 % Mean Corpuscular Volume 87.6 fl Mean Corpuscular Hemoglobin 28.6 pg Mean Corpuscular Hemoglobin Concent 32.7 g/dl Red Cell Distribution Width 13.8 % Platelet Count 232 10^3/UL Mean Platelet Volume 8.4 fl Immature Granulocytes % 0.600 % Neutrophils % 55.2 % Lymphocytes % 31.0 % Monocytes % 9.5 % Eosinophils % 3.2 % Basophils % 0.5 % Nucleated Red Blood Cells % 0.0 /100WBC Immature Granulocytes # 0.050 10^3/ul Neutrophils # 4.5 10^3/ul Lymphocytes # 2.6 10^3/ul Monocytes # 0.8 10^3/ul Eosinophils # 0.3 10^3/ul Basophils # 0.0 10^3/ul Nucleated Red Blood Cells # 0.0 10^3/ul Sodium Level 136 mmol/L Potassium Level 4.1 mmol/L Chloride Level 98 mmol/L Carbon Dioxide Level 27 mmol/L Anion Gap 11 Blood Urea Nitrogen 18 mg/dl Creatinine 1.01 mg/dl Est Glomerular Filtrat Rate mL/min > 60 mL/min Glucose Level 100 mg/dl Calcium Level 9.4 mg/dl Total Bilirubin 0.1 mg/dl Direct Bilirubin 0.00 mg/dl Indirect Bilirubin 0.1 mg/dl Aspartate Amino Transf (AST/SGOT) 36 IU/L Alanine Aminotransferase (ALT/SGPT) 25 IU/L Alkaline Phosphatase 63 IU/L Total Protein 7.6 g/dl Albumin 4.3 g/dl Globulin 3.30 g/dl Albumin/Globulin Ratio 1.30 Ethyl Alcohol Level < 10.0 mg/dl Urine Color YELLOW Urine Clarity CLEAR Urine pH 6.0 Urine Specific [place] 1.010 Urine Ketones NEGATIVE mg/dL Urine Nitrite NEGATIVE mg/dL Urine Bilirubin NEGATIVE mg/dL Urine Urobilinogen NEGATIVE mg/dL Urine Leukocyte Esterase NEGATIVE [place]/ul Urine Microscopic RBC 1 /HPF Urine Microscopic WBC 0 /HPF Urine Hemoglobin 1+ mg/dL Urine Glucose NEGATIVE mg/dL Urine Total Protein NEGATIVE mg/dl Urine Opiates Screen Negative Urine Barbiturates Negative Urine Amphetamines Screen POSITIVE Urine Benzodiazepines Screen Positive Urine Cocaine Screen Negative Urine Cannabinoids Positive Assessment and Plan Assessment/Diagnosis Diagnosis Adjustment Disorder with Depressed Mood Recommendation/Plan Discharge Disposition: Community (home) Legal Status: Voluntary Other Individual presented with financial stressors impacting his mood and some urges to superficially cut his skin. He adamantly denied suicidal thoughts and, thoug h he looked a bit down on exam, he showed no signs of agitation, alek, or psychosis. He has no active substance abuse issues nor family history of suicide. He also showed optimism when we discussed outpatient mental health services that could provide more comprehensive support and assistance for him. These are all significant protective factors suggesting he's not at high immin ent suicide risk. He does have one past suicide attempt which is a chronic risk factor. He doesn't present at present with marked risk factors which could be modified with psychiatric admission, and comprehensive outpatient services would be more likely to help provide him support and assistance with his ongoing stressors. DAVID URBINA MD Oct 21, 2018 01:26
--- NOTE | 2018-10-21 02:25 | ERD ---
ER Documentation Chief Complaint Chief Complaint Pt reports he is depressed and has thought of hurting himself by starving HPI 43-year-old male with a history of depression presenting with complaints of suicidal thoughts today because he had an issue with getting his money from the bank. He states that he does not know how he was going to go on for the next 3 weeks due to money issues. He denies stating that he would try to hurt himself by starving himself. He did not have any actual plan prior to arrival. He just had these thoughts and was feeling depressed so he came to the ER for evaluation. He has no other complaints. He denies any ingestions. ROS All systems reviewed and are negative except as per history of present illness. Medications Home Meds Active Scripts Aripiprazole* (Abilify*) 30 Mg Tablet, 30 MG PO DAILY, #30 TAB Prov:ROLAND EPPS 10/08/18 Divalproex Sodium* (Divalproex Sodium*) 500 Mg Tablet.dr, 500 MG PO BID, #28 TAB Prov:ROLAND EPPS 10/08/18 Alprazolam* (Xanax*) 2 Mg Tablet, 2 MG PO q day PRN for ANXIETY, #14 TAB Prov:BASHIR JAIN MD 09/15/18 Bupropion Hcl* (Wellbutrin SR*) 150 Mg Tablet.sa, 150 MG PO DAILY, #30 TAB.SA Prov:BASHIR JAIN MD 09/15/18 Fluoxetine Hcl* (Fluoxetine Hcl*) 40 Mg Capsule, 80 MG PO DAILY, #60 CAP Prov:BASHIR JAIN MD 09/15/18 Alprazolam* (Xanax*) 0.5 Mg Tab, 0.5 MG PO Q8H PRN for ANXIETY, #10 TAB Prov:ONEAL BANERJEE DO 08/20/18 Buspirone Hcl* (Buspirone Hcl*) 10 Mg Tab, 10 MG PO DAILY, #30 TAB Prov:JOSÉ MIGUEL CALLAWAY MD 07/07/18 Bupropion Hcl* (Wellbutrin XL*) 150 Mg Tab.sr.24h, 150 MG PO DAILY, #30 TAB.SA Prov:JOSÉ MIGUEL CALLAWAY MD 07/07/18 Fluoxetine Hcl* (Prozac*) 40 Mg Capsule, 60 MG PO DAILY, #30 CAP Prov:JOSÉ MIGUEL CALLAWAY MD 07/07/18 Alprazolam* (Xanax*) 2 Mg Tablet, 2 MG PO Q8H PRN for ANXIETY, #20 TAB Prov:JOSÉ MIGUEL CALLAWAY MD 07/07/18 Fluoxetine Hcl* (Prozac*) 20 Mg Capsule, 60 MG PO DAILY, #90 CAP Prov:MING MIRZA PA-C 05/03/18 Aripiprazole* (Abilify*) 30 Mg Tablet, 30 MG PO DAILY, #30 TAB Prov:MING MIRZA PA-C 05/03/18 Alprazolam* (Xanax*) 2 Mg Tablet, 2 MG PO Q8H PRN for ANXIETY, #4 TAB Prov:MING MIRZA PA-C 05/03/18 Bupropion Hcl* (Wellbutrin SR*) 150 Mg Tablet.sa, 150 MG PO DAILY, #30 TAB.SA Prov:MING MIRZA PA-C 05/03/18 Hydrocodone/Acetaminophen ([place] 5-325 Tablet) 1 Each Tablet, 1 TAB PO Q6H PRN f or PAIN, #10 TAB Prov:GIAN OCAMPO DO 04/05/18 Fluoxetine Hcl* (Prozac*) 20 Mg Capsule, 60 MG PO DAILY, #42 CAP Prov:DIAMOND SHIPMAN PA-C 03/23/18 Alprazolam* (Xanax*) 2 Mg Tablet, 2 MG PO Q8H PRN for ANXIETY, #5 TAB Prov:DIAMOND SHIPMAN PA-C 03/23/18 Reported Medications Bupropion Hcl* (Wellbutrin XL*) 150 Mg Tab.sr.24h, 150 MG PO DAILY, TAB.SA 12/08/17 Allergies Allergies: Coded Allergies: No Known Allergy (Unverified , 05/03/18) PMhx/Soc History of Surgery: Yes (R knee replacement) Anesthesia Reaction: No Hx Neurological Disorder: No Hx Respiratory Disorders: No Hx Cardiac Disorders: No Hx Psychiatric Problems: Yes (depression, anxiety, schizophrenia) Hx Miscellaneous Medical Probl: No Hx Alcohol Use: No Hx Substance Use: No Hx Tobacco Use: No Smoking Status: Never smoker FmHx Bipolar disorder in mother and father Physical Exam Vitals Vital Signs Date Temp Pulse Resp B/P (MAP) Pulse Ox O2 O2 Flow FiO2 Time Delivery Rate 10/20/18 98.1 109 20 156/94 100 22:35 (114) Physical Exam Const: No acute distress Head: Atraumatic Eyes: Normal Conjunctiva ENT: Normal External Ears, Nose and Mouth. Neck: Full range of motion. No meningismus. Resp: Clear to auscultation bilaterally Cardio: Regular rate and rhythm, no murmurs Neur: Awake and alert Psych: Depressed mood with suicidal thoughts, no plan, no HI or hallucinations. Result Diagram: 10/20/18 2341 10/20/18 2341 Results 24 hrs Laboratory Tests Test 10/20/18 23:41 10/20/18 23:59 White Blood Count 8.2 10^3/ul Red Blood Count 4.68 10^6/ul Hemoglobin 13.4 g/dl Hematocrit 41.0 % Mean Corpuscular Volume 87.6 fl Mean Corpuscular Hemoglobin 28.6 pg Mean Corpuscular Hemoglobin Concent 32.7 g/dl Red Cell Distribution Width 13.8 % Platelet Count 232 10^3/UL Mean Platelet Volume 8.4 fl Immature Granulocytes % 0.600 % Neutrophils % 55.2 % Lymphocytes % 31.0 % Monocytes % 9.5 % Eosinophils % 3.2 % Basophils % 0.5 % Nucleated Red Blood Cells % 0.0 /100WBC Immature Granulocytes # 0.050 10^3/ul Neutrophils # 4.5 10^3/ul Lymphocytes # 2.6 10^3/ul Monocytes # 0.8 10^3/ul Eosinophils # 0.3 10^3/ul Basophils # 0.0 10^3/ul Nucleated Red Blood Cells # 0.0 10^3/ul Sodium Level 136 mmol/L Potassium Level 4.1 mmol/L Chloride Level 98 mmol/L Carbon Dioxide Level 27 mmol/L Anion Gap 11 Blood Urea Nitrogen 18 mg/dl Creatinine 1.01 mg/dl Est Glomerular Filtrat Rate mL/min > 60 mL/min Glucose Level 100 mg/dl Calcium Level 9.4 mg/dl Total Bilirubin 0.1 mg/dl Direct Bilirubin 0.00 mg/dl Indirect Bilirubin 0.1 mg/dl Aspartate Amino Transf (AST/SGOT) 36 IU/L Alanine Aminotransferase (ALT/SGPT) 25 IU/L Alkaline Phosphatase 63 IU/L Total Protein 7.6 g/dl Albumin 4.3 g/dl Globulin 3.30 g/dl Albumin/Globulin Ratio 1.30 Ethyl Alcohol Level < 10.0 mg/dl Urine Color YELLOW Urine Clarity CLEAR Urine pH 6.0 Urine Specific [place] 1.010 Urine Ketones NEGATIVE mg/dL Urine Nitrite NEGATIVE mg/dL Urine Bilirubin NEGATIVE mg/dL Urine Urobilinogen NEGATIVE mg/dL Urine Leukocyte Esterase NEGATIVE [place]/ul Urine Microscopic RBC 1 /HPF Urine Microscopic WBC 0 /HPF Urine Hemoglobin 1+ mg/dL Urine Glucose NEGATIVE mg/dL Urine Total Protein NEGATIVE mg/dl Urine Opiates Screen Negative Urine Barbiturates Negative Urine Amphetamines Screen POSITIVE Urine Benzodiazepines Screen Positive Urine Cocaine Screen Negative Urine Cannabinoids Positive Procedures/MDM Patient's behavioral symptoms have stabilized while in the department. Patient is medically cleared and appropriate for psychiatric evaluation and work up. He was evaluated by tele-psychiatry who recommended outpatient psychiatric follow- up. He does not meet criteria for involuntary hold. No e/o neurologic, toxic, infectious, or metabolic cause. Outpatient follow-up recommended. Resources given. Patient's blood pressure was elevated (>120/80) but appears stable without evidence of hypertension emergency or urgency. The patient was counseled about the risks of hypertension and urged to pursue outpatient monitoring and therapy within a week with their primary care physician. Departure Diagnosis: Primary Impression: Depression Depression Type: unspecified Qualified Codes: F32.9 - Major depressive disorder, single episode, unspecified Condition: Stable Patient Instructions: Warning Signs of Suicide and What You Can Do Referrals: DOCTOR,NOT ON STAFF (PCP) ROSANGELA ALLISON MD Oct 21, 2018 02:25
== END 2018-10-21 02:35 | disposition home or self-care (01) ==
LOC: E/R 22:32
DX: F32.9 Major depressive disorder, single episode, unspecified (principal); Z96.651 Presence of right artificial knee joint
CPT/HCPCS: 80053; 80307; 81001; 85025; Z7502; 99285

== ENCOUNTER 2018-10-22 05:12 | Emergency (ER) | payer OTHER ==
[~2018-10-22] VITALS: Ht 182.9 cm; Wt 83.1 kg
[2018-10-22 05:14] VITALS: Ht 182.9 cm; Wt 83.1 kg
--- NOTE | 2018-10-22 06:12 | PSY ---
Date/Time of Note Date/Time of Note DATE: 10/22/18 TIME: 06:07 Psychiatric Subjective Eval Consent Pt consented to telemedicine: Yes Subjective Evaluation Patient location: emergency Chief Complaint: DEPRESSION; SI; NO SPECIFIC PLAN Medical history Problems Medical Problems: (1) Dental caries Status: Acute (2) Depression Status: Acute (3) Depression Status: Acute (4) Depression Status: Acute (5) Encounter for medication refill Status: Acute (6) Encounter for medication refill Status: Acute (7) Methamphetamine abuse Status: Acute (8) Pain, dental Status: Acute (9) Patient left after triage Status: Acute (10) Patient left without being seen Status: Acute (11) Patient left without being seen Status: Acute (12) Psychiatric diagnosis Status: Acute (13) Psychiatric diagnosis Status: Acute (14) Suicidal ideation Status: Acute (15) Suicidal ideation Status: Acute (16) Suicidal ideation Status: Acute (17) Suicidal ideation Status: Acute (18) Suicidal ideation Status: Acute (19) Suicidal ideations Status: Acute (20) Toothache Status: Acute Allergies: Coded Allergies: No Known Allergy (Unverified , 05/03/18) Assessment and Plan Recommendation/Plan Discharge Disposition: Psychiatric inpatient Legal Status: Voluntary Assessment Additional comments: IDENTIFYING INFORMATION: 43 year old Male patient who is currently located at the hospital and for whom psychiatric consultation was requested. SOURCES OF INFORMATION: The patient who appears to be reliable and the medical records; the nursing staff. CHIEF COMPLAINT: "very suicidal". HISTORY OF PRESENT ILLNESS: The patient was interviewed via telemedicine in the presence of and under the supervision of nursing staff of the hospital. The consent to conducting this interview via telemedicine was obtained by the nursing staff at the hospital. MONALISA Bolivar reports that the patient presented with depressed mood and SI. The patient reports having been depressed, having anhedonia, SI with plan to shoot himself, insomnia at times. The patient denies having low appetite, AH, VH, delusions. The patient denies using alcohol heavily or regularly. The patient denies using any other substances. In terms of past psychiatric history, the patient reports having a history of past psychiatric hospitalizations. The patient reports having a history of past suicide attempts. PAST MEDICAL HISTORY: none. CURRENT MEDICATIONS: depakote 500 mg po bid, abilify 30 mg po qhs. ALLERGIES TO MEDICATIONS: NKDA. LABORATORY TESTS: pending. SOCIAL HISTORY: lives alone, single, no children, not on disability. REVIEW OF SYSTEMS: Constitutional (e.g., fever, weight loss): negative; Eyes, Ears, Nose, Mouth, Throat: negative; Cardiovascular: negative; Respiratory: negative; Gastrointestinal: negative; Genitourinary: negative; Musculoskeletal: negative; Integumentary (skin and/or breast): negative; Neurological: negative; Psychiatric: as per HPI; Endocrine: negative; Hematologic/Lymphatic: negative; Allergic/Immunologic: negative. MENTAL STATUS EXAMINATION: General Appearance and Behavior: Calm, cooperative with the interview, pleasant with the current interviewer, makes fair eye contact, fairly groomed, no abnormal movements noted, Speech: Regular rate, regular rhythm, normal latency, normal volume, somewhat decreased amount, Flow of thought: sequential, logical, goal-directed, Content of thought: no auditory hallucinations, no visual hallucinations, no delusions, positive for suicidal ideation; no homicidal ideation, Mood: "depressed", Affect: dysthymic, dysphoric, not reactive, Attention: normal based on the interview, Insight: fair, Judgment: poor, Memory: normal based on the interview, Sensorium: alert and oriented to person, place and date. ASSESSMENT: The patient's presentation and history are consistent with the diagnosis of unspecified mood disorder. The patient presents in a major depressive episode in the context of medication noncompliance, psychosocial stressors. No evidence of psychosis, alek, hypomania on exam. PLAN: - Medication management: Would continue depakote 500 mg po bid, abilify 15 mg by mouth twice a day. Would start haloperidol 5 mg IM PRN severe agitation q4 hours. Would start diphenhydramine 50 mg IM PRN severe agitation q4 hours. Would start lorazepam 2 mg IM PRN severe agitation q4 hours. Will defer to the inpatient psychiatry team for other medication changes. - Labs: Please check CBC, CMP, Alcohol level, UDS, Depakote level. - Psychotherapy: Provided supportive psychotherapy and psychoeducation. - Disposition: Would recommend voluntary admission to the inpatient psychiatric unit as the patient would benefit from such an intervention so long as the patient has been cleared medically for admission to psychiatry. The patient is agreeable to being hospitalized in the inpatient psychiatric unit at this time. Would place on suicide precautions. Discussed about the above plan with Dr. Osman. MARIBELL BAEZ MD 4, 2019 06:12
--- NOTE | 2018-10-22 08:10 | ERD ---
ER Documentation Chief Complaint Chief Complaint DEPRESSION; SI; NO SPECIFIC PLAN HPI Patient is a 43-year-old male with psychiatric history who presents with suicidal ideation. He said that he is having severe depression. He started over the last few days. He is taking medications but says "I am going through the worst time of my life right now". He said that he wants to shoot himself in the head. He denies having access to a gun. Upon review of old medical records the patient has multiple visits to the ER for similar complaints. He does not currently have a primary doctor. ROS All systems reviewed and are negative except as per history of present illness. Medications Home Meds Active Scripts Divalproex Sodium* (Divalproex Sodium*) 500 Mg Tablet.dr, 500 MG PO BID, #28 TAB Prov:ROLAND EPPS 10/08/18 Aripiprazole* (Abilify*) 30 Mg Tablet, 30 MG PO DAILY, #30 TAB Prov:MING MIRZA PA-C 05/03/18 Discontinued Reported Medications Bupropion Hcl* (Wellbutrin XL*) 150 Mg Tab.sr.24h, 150 MG PO DAILY, TAB.SA 12/08/17 Discontinued Scripts Aripiprazole* (Abilify*) 30 Mg Tablet, 30 MG PO DAILY, #30 TAB Prov:ROLAND EPPS 10/08/18 Alprazolam* (Xanax*) 2 Mg Tablet, 2 MG PO q day PRN for ANXIETY, #14 TAB Prov:BASHIR JAIN MD 09/15/18 Bupropion Hcl* (Wellbutrin SR*) 150 Mg Tablet.sa, 150 MG PO DAILY, #30 TAB.SA Prov:BASHIR JAIN MD 09/15/18 Fluoxetine Hcl* (Fluoxetine Hcl*) 40 Mg Capsule, 80 MG PO DAILY, #60 CAP Prov:BASHIR JAIN MD 09/15/18 Alprazolam* (Xanax*) 0.5 Mg Tab, 0.5 MG PO Q8H PRN for ANXIETY, #10 TAB Prov:ONEAL BANERJEE DO 08/20/18 Buspirone Hcl* (Buspirone Hcl*) 10 Mg Tab, 10 MG PO DAILY, #30 TAB Prov:JOSÉ MIGUEL CALLAWAY MD 07/07/18 Bupropion Hcl* (Wellbutrin XL*) 150 Mg Tab.sr.24h, 150 MG PO DAILY, #30 TAB.SA Prov:JOSÉ MIGUEL CALLAWAY MD 07/07/18 Fluoxetine Hcl* (Prozac*) 40 Mg Capsule, 60 MG PO DAILY, #30 CAP Prov:JOSÉ MIGUEL CALLAWAY MD 07/07/18 Alprazolam* (Xanax*) 2 Mg Tablet, 2 MG PO Q8H PRN for ANXIETY, #20 TAB Prov:JOSÉ MIGUEL CALLAWAY MD 07/07/18 Fluoxetine Hcl* (Prozac*) 20 Mg Capsule, 60 MG PO DAILY, #90 CAP Prov:MNIG MIRZA PA-C 05/03/18 Alprazolam* (Xanax*) 2 Mg Tablet, 2 MG PO Q8H PRN for ANXIETY, #4 TAB Prov:MING MIRZA PA-C 05/03/18 Bupropion Hcl* (Wellbutrin SR*) 150 Mg Tablet.sa, 150 MG PO DAILY, #30 TAB.SA Prov:MING MIRZA PA-C 05/03/18 Hydrocodone/Acetaminophen ([place] 5-325 Tablet) 1 Each Tablet, 1 TAB PO Q6H PRN for PAIN, #10 TAB Prov:GIAN OCAMPO DO 04/05/18 Fluoxetine Hcl* (Prozac*) 20 Mg Capsule, 60 MG PO DAILY, #42 CAP Prov:DIAMOND SHIPMAN PA-C 03/23/18 Alprazolam* (Xanax*) 2 Mg Tablet, 2 MG PO Q8H PRN for ANXIETY, #5 TAB Prov:DIAMOND SHIPMAN PA-C 03/23/18 Allergies Allergies: Coded Allergies: No Known Allergy (Unverified , 10/22/18) PMhx/Soc History of Surgery: Yes (R knee replacement) Anesthesia Reaction: No Hx Neurological Disorder: No Hx Respiratory Disorders: No Hx Cardiac Disorders: No Hx Psychiatric Problems: Yes (depression, anxiety, schizophrenia) Hx Miscellaneous Medical Probl: No Hx Alcohol Use: No Hx Substance Use: Yes (marijuana, meth) Hx Tobacco Use: No Smoking Status: Current some day smoker FmHx Family History: No diabetes Physical Exam Vitals Vital Signs Date Temp Pulse Resp B/P (MAP) Pulse Ox O2 O2 Flow FiO2 Time Delivery Rate 10/22/18 97.0 102 16 151/95 100 05:14 (113) Physical Exam Const: No acute distress Head: Atraumatic Eyes: Normal Conjunctiva ENT: Normal External Ears, Nose and Mouth. Neck: Full range of motion. No meningismus. Resp: Clear to auscultation bilaterally Cardio: Regular rate and rhythm, no murmurs Abd: Soft, non tender, non distended. Normal bowel sounds Skin: No petechiae or rashes Back: No midline or flank tenderness Ext: No cyanosis, or edema Neur: Awake and alert Psych: Depressed affect with positive suicidal ideation with plan to shoot himself Result Diagram: 10/22/1870610/22/18706 Results 24 hrs Laboratory Tests Test 10/22/18 07:05 10/22/18 07:07 Urine Color YELLOW Urine Clarity CLEAR Urine pH 6.0 Urine Specific [place] 1.012 Urine Ketones NEGATIVE mg/dL Urine Nitrite NEGATIVE mg/dL Urine Bilirubin NEGATIVE mg/dL Urine Urobilinogen NEGATIVE mg/dL Urine Leukocyte Esterase NEGATIVE Duyen/ul Urine Hemoglobin NEGATIVE mg/dL Urine Glucose NEGATIVE mg/dL Urine Total Protein NEGATIVE mg/dl Urine Opiates Screen Negative Urine Barbiturates Negative Urine Amphetamines Screen Pending Urine Benzodiazepines Screen Positive Urine Cocaine Screen Negative Urine Cannabinoids Positive White Blood Count 10.1 10^3/ul Red Blood Count 4.74 10^6/ul Hemoglobin 13.6 g/dl Hematocrit 41.4 % Mean Corpuscular Volume 87.3 fl Mean Corpuscular Hemoglobin 28.7 pg Mean Corpuscular Hemoglobin Concent 32.9 g/dl Red Cell Distribution Width 13.6 % Platelet Count 228 10^3/UL Mean Platelet Volume 7.9 fl Immature Granulocytes % 0.500 % Neutrophils % 68.1 % Lymphocytes % 20.8 % Monocytes % 7.8 % Eosinophils % 2.5 % Basophils % 0.3 % Nucleated Red Blood Cells % 0.0 /100WBC Immature Granulocytes # 0.050 10^3/ul Neutrophils # 6.9 10^3/ul Lymphocytes # 2.1 10^3/ul Monocytes # 0.8 10^3/ul Eosinophils # 0.3 10^3/ul Basophils # 0.0 10^3/ul Nucleated Red Blood Cells # 0.0 10^3/ul Sodium Level 140 mmol/L Potassium Level 3.9 mmol/L Chloride Level 104 mmol/L Carbon Dioxide Level 26 mmol/L Anion Gap 10 Blood Urea Nitrogen 19 mg/dl Creatinine 0.96 mg/dl Est Glomerular Filtrat Rate mL/min > 60 mL/min Glucose Level 89 mg/dl Calcium Level 9.6 mg/dl Total Bilirubin 0.3 mg/dl Direct Bilirubin 0.00 mg/dl Indirect Bilirubin 0.3 mg/dl Aspartate Amino Transf (AST/SGOT) 41 IU/L Alanine Aminotransferase (ALT/SGPT) 22 IU/L Alkaline Phosphatase 87 IU/L Total Protein 7.7 g/dl Albumin 4.4 g/dl Globulin 3.30 g/dl Albumin/Globulin Ratio 1.33 Salicylates Level < 1.0 mg/dl Acetaminophen Level < 10.0 ug/ml Ethyl Alcohol Level < 10.0 mg/dl Current Medications Medications Dose Sig/Jamel Start Time Status Last (Trade) Ordered Route PRN Stop Time Admin Dose Reason Admin Divalproex 500 mg BID PO 10/22/18 Sodium 09:00 (Depakote) 15 mg BID PO 10/22/18 Aripiprazole 09:00 (Abilify) Procedures/MDM Patient is a 43-year-old male who presents with suicidal ideation. Laboratory studies were negative and he is medically cleared now for psychiatric care. He was seen by psychiatry who recommended a 5150 hold. He recommended Depakote and Abilify which I have ordered while he is in the emergency department. The patient is awaiting psychiatric transfer at this time and we are attempting to find placement. Departure Diagnosis: Primary Impression: Suicidal ideation Condition: DANNY Ferreira MD Oct 22, 2018 08:10
[2018-10-22] MEDS ORDERED: ARIPIPRAZOLE 5 MG TAB PO SCH (09:00)
[2018-10-22] MEDS ORDERED: DIVALPROEX (EC) 500 MG TAB PO SCH (09:00)
[2018-10-22 12:48] VITALS: BP 117/78; PULSE 66; RESP 18
== END 2018-10-22 13:12 ==
LOC: E/R 05:12
DX: R45.851 Suicidal ideations (principal); R40.2142 Coma scale, eyes open, spontaneous, at arrival to emergency department; R40.2252 Coma scale, best verbal response, oriented, at arrival to emergency department; R40.2362 Coma scale, best motor response, obeys commands, at arrival to emergency department; F17.210 Nicotine dependence, cigarettes, uncomplicated; Z96.651 Presence of right artificial knee joint
CPT/HCPCS: 36415; 80053; 80164; 80307; 81003; 85025; Z7502; Z7610

== ENCOUNTER 2018-10-28 19:29 | Emergency (ER) | payer OTHER ==
[~2018-10-28] VITALS: Ht 177.8 cm; Wt 80.0 kg
[~2018-10-28 19:29] MED LIST changes: -ALPR0.5T PO; -ALPR2TAB PO; -BUPR-165 PO; -BUPR-75 PO; -BUSP10TA2 PO; -FLUO20CA38 PO; -FLUO40CA PO; -FLUO40CA10 PO; -HYDR-4011 PO
[2018-10-28 19:34] VITALS: Ht 177.8 cm; Wt 80.0 kg
--- NOTE | 2018-10-28 21:33 | ERD ---
ER Documentation Chief Complaint Chief Complaint SUICIDAL IDEATION X TODAY. PLAN TO CUT WRISTS HPI This a patient known by me who is here for suicidal ideation. The patient says he is sick of life he is she is through with that he says he says he is sick of not being able to take care of himself. Patient is not homeless and lives in apartment. The patient states that he was admitted last month inpatient for 3 days and is taking his medications which are Depakote and Abilify, and they are not helping. He says he wants to commit suicide again and wants to cut his wrist is his plan. ROS All systems reviewed and are negative except as per history of present illness. Medications Home Meds Active Scripts Divalproex Sodium* (Divalproex Sodium*) 500 Mg Tablet.dr, 500 MG PO BID, #28 TAB Prov:ROLAND EPPS 10/08/18 Aripiprazole* (Abilify*) 30 Mg Tablet, 30 MG PO DAILY, #30 TAB Prov:MING MIRZA PA-C 05/03/18 Discontinued Reported Medications Bupropion Hcl* (Wellbutrin XL*) 150 Mg Tab.sr.24h, 150 MG PO DAILY, TAB.SA 12/08/17 Discontinued Scripts Aripiprazole* (Abilify*) 30 Mg Tablet, 30 MG PO DAILY, #30 TAB Prov:ROLAND EPPS 10/08/18 Alprazolam* (Xanax*) 2 Mg Tablet, 2 MG PO q day PRN for ANXIETY, #14 TAB Prov:BASHIR JAIN MD 09/15/18 Bupropion Hcl* (Wellbutrin SR*) 150 Mg Tablet.sa, 150 MG PO DAILY, #30 TAB.SA Prov:BASHIR JAIN MD 09/15/18 Fluoxetine Hcl* (Fluoxetine Hcl*) 40 Mg Capsule, 80 MG PO DAILY, #60 CAP Prov:BASHIR JAIN MD 09/15/18 Alprazolam* (Xanax*) 0.5 Mg Tab, 0.5 MG PO Q8H PRN for ANXIETY, #10 TAB Prov:ONEAL BANERJEE DO 08/20/18 Buspirone Hcl* (Buspirone Hcl*) 10 Mg Tab, 10 MG PO DAILY, #30 TAB Prov:JOSÉ MIGUEL CALLAWAY MD 07/07/18 Bupropion Hcl* (Wellbutrin XL*) 150 Mg Tab.sr.24h, 150 MG PO DAILY, #30 TAB.SA Prov:JOSÉ MIGUEL CALLAWAY MD 07/07/18 Fluoxetine Hcl* (Prozac*) 40 Mg Capsule, 60 MG PO DAILY, #30 CAP Prov:JOSÉ MIGUEL CALLAWAY MD 07/07/18 Alprazolam* (Xanax*) 2 Mg Tablet, 2 MG PO Q8H PRN for ANXIETY, #20 TAB Prov:JOSÉ MIGUEL CALLAWAY MD 07/07/18 Fluoxetine Hcl* (Prozac*) 20 Mg Capsule, 60 MG PO DAILY, #90 CAP Prov:MING MIRZA PA-C 05/03/18 Alprazolam* (Xanax*) 2 Mg Tablet, 2 MG PO Q8H PRN for ANXIETY, #4 TAB Prov:MING MIRZA PA-C 05/03/18 Bupropion Hcl* (Wellbutrin SR*) 150 Mg Tablet.sa, 150 MG PO DAILY, #30 TAB.SA Prov:MING MIRZA PA-C 05/03/18 Hydrocodone/Acetaminophen ([place] 5-325 Tablet) 1 Each Tablet, 1 TAB PO Q6H PRN for PAIN, #10 TAB Prov:GIAN OCAMPO DO 04/05/18 Fluoxetine Hcl* (Prozac*) 20 Mg Capsule, 60 MG PO DAILY, #42 CAP Prov:DIAMOND SHIPMAN PA-C 03/23/18 Alprazolam* (Xanax*) 2 Mg Tablet, 2 MG PO Q8H PRN for ANXIETY, #5 TAB Prov:DIAMOND SHIPMAN PA-C 03/23/18 Allergies Allergies: Coded Allergies: No Known Allergy (Unverified , 10/22/18) PMhx/Soc History of Surgery: Yes (R knee replacement) Anesthesia Reaction: No Hx Neurological Disorder: No Hx Respiratory Disorders: No Hx Cardiac Disorders: No Hx Psychiatric Problems: Yes (depression, anxiety, schizophrenia, SI, 5150) Hx Miscellaneous Medical Probl: No Hx Alcohol Use: No Hx Substance Use: Yes (marijuana, meth) Hx Tobacco Use: No Smoking Status: Never smoker FmHx Family History: No coronary disease Physical Exam Vitals Vital Signs Date Temp Pulse Resp B/P (MAP) Pulse Ox O2 O2 Flow FiO2 Time Delivery Rate 10/28/18 97.8 97 16 128/94 97 Room Air 19:49 (105) 10/28/18 98.1 83 18 157/89 96 19:34 (111) Physical Exam Const: Well-developed, well-nourished Head: Atraumatic, normocephalic Eyes: Normal Conjunctiva, PERRLA, EOMI, normal sclera, no nystagmus ENT: Normal External Ears, Nose and Mouth, moist mucus membranes. Neck: Full range of motion. No meningismus, no lymphadenopathy. Resp: Clear to auscultation bilaterally, no wheezing, rhonchi, rales Cardio: Regular rate and rhythm, no murmurs, S1 S2 present Abd: Soft, non tender x 4, non distended. Normal bowel sounds, no guarding or rebound, no pulsitile abdominal masses or bruits Skin: No petechiae or rashes, no ecchymosis , no maculopapular rash Back: No midline or flank tenderness Ext: No cyanosis, or edema, FROM x 4, normal inspection, neurovascularly intact x 4 Neur: Awake and alert, STR 5/5 x 4, sensation intact x 4, no focal findings, cerebellum intact Psych: Admits to suicidal ideation Result Diagram: 10/28/18200810/28/182008 Results 24 hrs Laboratory Tests Test 10/28/18 19:57 10/28/18 20:09 Urine Opiates Screen Negative Urine Barbiturates Negative Urine Amphetamines Screen Positive Urine Benzodiazepines Screen Positive Urine Cocaine Screen Negative Urine Cannabinoids Positive White Blood Count 8.4 10^3/ul Red Blood Count 5.06 10^6/ul Hemoglobin 14.6 g/dl Hematocrit 44.0 % Mean Corpuscular Volume 87.0 fl Mean Corpuscular Hemoglobin 28.9 pg Mean Corpuscular Hemoglobin Concent 33.2 g/dl Red Cell Distribution Width 13.4 % Platelet Count 267 10^3/UL Mean Platelet Volume 8.3 fl Immature Granulocytes % 0.400 % Neutrophils % 58.2 % Lymphocytes % 30.0 % Monocytes % 8.2 % Eosinophils % 2.6 % Basophils % 0.6 % Nucleated Red Blood Cells % 0.0 /100WBC Immature Granulocytes # 0.030 10^3/ul Neutrophils # 4.9 10^3/ul Lymphocytes # 2.5 10^3/ul Monocytes # 0.7 10^3/ul Eosinophils # 0.2 10^3/ul Basophils # 0.1 10^3/ul Nucleated Red Blood Cells # 0.0 10^3/ul Sodium Level 142 mmol/L Potassium Level 4.2 mmol/L Chloride Level 103 mmol/L Carbon Dioxide Level 29 mmol/L Anion Gap 10 Blood Urea Nitrogen 15 mg/dl Creatinine 1.00 mg/dl Est Glomerular Filtrat Rate mL/min > 60 mL/min Glucose Level 108 mg/dl Calcium Level 10.1 mg/dl Total Bilirubin 0.4 mg/dl Direct Bilirubin 0.00 mg/dl Indirect Bilirubin 0.4 mg/dl Aspartate Amino Transf (AST/SGOT) 26 IU/L Alanine Aminotransferase (ALT/SGPT) 9 IU/L Alkaline Phosphatase 67 IU/L Total Protein 7.6 g/dl Albumin 4.4 g/dl Globulin 3.20 g/dl Albumin/Globulin Ratio 1.37 Salicylates Level < 1.0 mg/dl Acetaminophen Level < 10.0 ug/ml Ethyl Alcohol Level < 10.0 mg/dl Procedures/MDM This patient's labs are normal. Will have him evaluated by telemetry psychiatrist he will be transferred to inpatient psych unit on a hold Departure Diagnosis: Primary Impression: Suicidal ideation Condition: Stable ONEAL BANERJEE DO Oct 28, 2018 21:33
--- NOTE | 2018-10-29 00:43 | PSY ---
Date/Time of Note Date/Time of Note DATE: 10/29/18 TIME: 00:41 Psychiatric Subjective Eval Consent Pt consented to telemedicine: Yes Subjective Evaluation Patient location: emergency Chief Complaint: SUICIDAL IDEATION X TODAY. PLAN TO CUT WRISTS Medical history Problems Medical Problems: (1) Dental caries Status: Acute (2) Depression Status: Acute (3) Depression Status: Acute (4) Depression Status: Acute (5) Encounter for medication refill Status: Acute (6) Encounter for medication refill Status: Acute (7) Methamphetamine abuse Status: Acute (8) Pain, dental Status: Acute (9) Patient left after triage Status: Acute (10) Patient left without being seen Status: Acute (11) Patient left without being seen Status: Acute (12) Psychiatric diagnosis Status: Acute (13) Psychiatric diagnosis Status: Acute (14) Suicidal ideation Status: Acute (15) Suicidal ideation Status: Acute (16) Suicidal ideation Status: Acute (17) Suicidal ideation Status: Acute (18) Suicidal ideation Status: Acute (19) Suicidal ideation Status: Acute (20) Suicidal ideation Status: Acute (21) Suicidal ideations Status: Acute (22) Toothache Status: Acute Allergies: Coded Allergies: No Known Allergy (Unverified , 10/22/18) Psychiatric Objective Eval Mental Status Examination: Laboratory Results Laboratory Tests Test 10/28/18 19:57 10/28/18 20:09 Urine Opiates Screen Negative Urine Barbiturates Negative Urine Amphetamines Screen Positive Urine Benzodiazepines Screen Positive Urine Cocaine Screen Negative Urine Cannabinoids Positive White Blood Count 8.4 10^3/ul Red Blood Count 5.06 10^6/ul Hemoglobin 14.6 g/dl Hematocrit 44.0 % Mean Corpuscular Volume 87.0 fl Mean Corpuscular Hemoglobin 28.9 pg Mean Corpuscular Hemoglobin Concent 33.2 g/dl Red Cell Distribution Width 13.4 % Platelet Count 267 10^3/UL Mean Platelet Volume 8.3 fl Immature Granulocytes % 0.400 % Neutrophils % 58.2 % Lymphocytes % 30.0 % Monocytes % 8.2 % Eosinophils % 2.6 % Basophils % 0.6 % Nucleated Red Blood Cells % 0.0 /100WBC Immature Granulocytes # 0.030 10^3/ul Neutrophils # 4.9 10^3/ul Lymphocytes # 2.5 10^3/ul Monocytes # 0.7 10^3/ul Eosinophils # 0.2 10^3/ul Basophils # 0.1 10^3/ul Nucleated Red Blood Cells # 0.0 10^3/ul Sodium Level 142 mmol/L Potassium Level 4.2 mmol/L Chloride Level 103 mmol/L Carbon Dioxide Level 29 mmol/L Anion Gap 10 Blood Urea Nitrogen 15 mg/dl Creatinine 1.00 mg/dl Est Glomerular Filtrat Rate mL/min > 60 mL/min Glucose Level 108 mg/dl Calcium Level 10.1 mg/dl Total Bilirubin 0.4 mg/dl Direct Bilirubin 0.00 mg/dl Indirect Bilirubin 0.4 mg/dl Aspartate Amino Transf (AST/SGOT) 26 IU/L Alanine Aminotransferase (ALT/SGPT) 9 IU/L Alkaline Phosphatase 67 IU/L Total Protein 7.6 g/dl Albumin 4.4 g/dl Globulin 3.20 g/dl Albumin/Globulin Ratio 1.37 Salicylates Level < 1.0 mg/dl Acetaminophen Level < 10.0 ug/ml Ethyl Alcohol Level < 10.0 mg/dl Assessment and Plan Recommendation/Plan Discharge Disposition: Psychiatric inpatient Legal Status: Voluntary Assessment Additional comments: IDENTIFYING INFORMATION: 43 year old Male patient who is currently located at the hospital and for whom psychiatric consultation was requested. SOURCES OF INFORMATION: The patient who appears to be reliable and the medical records; the nursing staff. CHIEF COMPLAINT: "depressed". HISTORY OF PRESENT ILLNESS: The patient was interviewed via telemedicine in the presence of and under the supervision of nursing staff of the hospital. The consent to conducting this interview via telemedicine was obtained by the nursing staff at the hospital. MONALISA Marie reports that the patient presented with SI with plan to cut wrist with glass. Is not on a 5150 hold. The patient reports having depressed mood, anhedonia, SI with plan to cut wrist. The patient denies having insomnia, low appetite, AH, VH, delusions. The patient denies using alcohol heavily or regularly. The patient denies using any other substances. PAST MEDICAL HISTORY: none. CURRENT MEDICATIONS: depakote, abilify- noncompliant ALLERGIES TO MEDICATIONS: NKDA. LABORATORY TESTS: CBC wnl, CMP wnl, UDS + amph, benzos, MJ, alcohol level not detected. SOCIAL HISTORY: single, not homeless, no children; not employed, not on disability. REVIEW OF SYSTEMS: Constitutional (e.g., fever, weight loss): negative; Eyes, Ears, Nose, Mouth, Throat: negative; Cardiovascular: negative; Respiratory: negative; Gastrointestinal: negative; Genitourinary: negative; Musculoskeletal: negative; Integumentary (skin and/or breast): negative; Neurological: negative; Psychiatric: as per HPI; Endocrine: negative; Hematologic/Lymphatic: negative; Allergic/Immunologic: negative. MENTAL STATUS EXAMINATION: General Appearance and Behavior: Calm, cooperative with the interview, pleasant with the current interviewer, makes fair eye contact, fairly groomed, no abnormal movements noted, Speech: Regular rate, regular rhythm, normal latency, normal volume, somewhat decreased amount, Flow of thought: sequential, logical, goal-directed, Content of thought: no auditory hallucinations, no visual hallucinations, no delusions, positive for suicidal ideation; no homicidal ideation, Mood: "depressed", Affect: dysthymic, dysphoric, not reactive, Attention: normal based on the interview, Insight: fair, Judgment: poor, Memory: normal based on the interview, Sensorium: alert and oriented to person, place and date. ASSESSMENT: The patient's presentation and history are consistent with the diagnosis of unspecified mood disorder, r/o stimulant use disorder. The patient presents in a major depressive episode in the context of medication noncompliance, psychosocial stressors and substance use. No evidence of psychosis, alek, hypomania on exam. PLAN: - Medication management: Would start haloperidol 5 mg IM PRN severe agitation q4 hours. Would start diphenhydramine 50 mg IM PRN severe agitation q4 hours. Would start lorazepam 2 mg IM PRN severe agitation q4 hours Will defer to the inpatient psychiatry team for other medication changes. - Labs: No other laboratory tests are needed at this time. - Psychotherapy: Provided supportive psychotherapy and psychoeducation. - Disposition: Would recommend voluntary admission to the inpatient psychiatric unit as the patient would benefit from such an intervention so long as the patient has been cleared medically for admission to psychiatry. The patient is agreeable to being hospitalized in the inpatient psychiatric unit at this time. Would place on suicide precautions. I called the emergency room physician who is taking care of the patient to discuss about the above plan but the emergency room physician is not available at this time. I left my phone number with the hospital staff requesting a callback so that the emergency room physician can reach me when they become available. MARIBELL BAEZ MD Oct 29, 2018 00:43
--- NOTE | 2018-10-29 00:57 | EN ---
Date/Time of Note Date/Time of Note DATE: 10/29/18 TIME: 00:56 ER Progress Note The patient was observed with serial exams over the above timeframe. Patient remained calm Routine psychiatric medications ordered: Still pending psychiatric placement Hold status: Patient is pending placement ROLAND SANCHEZ Oct 29, 2018 00:57
[2018-10-29 04:51] VITALS: BP 114/84; PULSE 55; RESP 15
== END 2018-10-29 04:53 | disposition short-term general hospital (02) ==
LOC: E/R 19:29
DX: R45.851 Suicidal ideations (principal); Z96.651 Presence of right artificial knee joint
CPT/HCPCS: 80053; 80307; 85025; Z7502

== ENCOUNTER 2018-12-19 07:29 | Emergency (ER) | payer OTHER ==
[~2018-12-19] VITALS: Ht 182.9 cm; Wt 82.4 kg
[2018-12-19 07:33] VITALS: BP 133/75; PULSE 77; RESP 16; Ht 182.9 cm; Wt 82.4 kg
[2018-12-19] MEDS ORDERED: ARIP30TA4 PO (07:47)
[2018-12-19] MEDS ORDERED: BUPR-75 PO (07:47)
[2018-12-19] MEDS ORDERED: ALPR2TAB PO (07:47)
[2018-12-19] MEDS ORDERED: FLUO20CA38 PO (07:47)
--- NOTE | 2018-12-19 10:06 | ERD ---
ER Documentation Chief Complaint Chief Complaint PT is requesting med refill. No PCP HPI 43-year-old male presenting for medication refill. Patient is between doctors currently and takes medication for anxiety. He takes Prozac, Wellbutrin, Xanax and Abilify. Today he denies suicidal homicidal ideations. Denies other medical problems. NKDA. Surgical history knee surgery. Social history smokes marijuana. ROS All systems reviewed and are negative except as per history of present illness. Medications Home Meds Active Scripts Aripiprazole* (Abilify*) 30 Mg Tablet, 30 MG PO DAILY, #30 TAB Prov:MING MIRZA PA-C 12/19/18 Alprazolam* (Xanax*) 2 Mg Tablet, 2 MG PO Q8H PRN for ANXIETY, #5 TAB Prov:MING MIRZA PA-C 12/19/18 Bupropion Hcl* (Wellbutrin XL*) 150 Mg Tab.sr.24h, 150 MG PO DAILY, #30 TAB.SA Prov:MING MIRZA PA-C 12/19/18 Fluoxetine Hcl* (Prozac*) 20 Mg Capsule, 60 MG PO DAILY, #90 CAP Prov:MING MIRZA PA-C 12/19/18 Divalproex Sodium* (Divalproex Sodium*) 500 Mg Tablet.dr, 500 MG PO BID, #28 TAB Prov:ROLAND EPPS 10/08/18 Aripiprazole* (Abilify*) 30 Mg Tablet, 30 MG PO DAILY, #30 TAB Prov:MING MIRZA PA-C 05/03/18 Allergies Allergies: Coded Allergies: No Known Allergy (Unverified , 10/22/18) PMhx/Soc History of Surgery: Yes (R knee replacement) Anesthesia Reaction: No Hx Neurological Disorder: No Hx Respiratory Disorders: No Hx Cardiac Disorders: No Hx Psychiatric Problems: Yes (depression, anxiety, schizophrenia, SI, 5150) Hx Miscellaneous Medical Probl: No Hx Alcohol Use: No Hx Substance Use: Yes (marijuana, meth) Hx Tobacco Use: No FmHx Family History: No diabetes, No coronary disease, No other Physical Exam Vitals Vital Signs Date Temp Pulse Resp B/P (MAP) Pulse Ox O2 O2 Flow FiO2 Time Delivery Rate 12/19/18 98.3 77 16 133/75 98 07:33 (94) Physical Exam GENERAL: The patient is well-appearing, well-nourished, in no acute distress HEENT: Atraumatic. Conjunctivae are pink. Pupils equal, round, and reactive to light. There is no scleral icterus. Tympanic membranes clear bilaterally. Oropharynx clear. No nystagmus or photophobia. NECK: C-spine is soft and supple. There is no meningismus. There is no cervical lymphadenopathy. CHEST: Clear to auscultation bilaterally. There are no rales, wheezes or rhonchi. HEART: Regular rate and rhythm. No murmurs, clicks, rubs or gallops. Procedures/MDM MDM: 43-year-old male presenting for medication refill. There is no findings consistent with suicidal or homicidal ideation. Patient is discharged with supportive medications and told to follow-up with primary care and psychiatrist. Patient is told symptoms change or worsen to return to ER. All questions ans wered at discharge Departure Diagnosis: Primary Impression: Encounter for medication refill Condition: Stable Patient Instructions: Taking Medicine Safely Referrals: [facility] YOU HAVE RECEIVED A MEDICAL SCREENING EXAM AND THE RESULTS INDICATE THAT YOU DO NOT HAVE A CONDITION THAT REQUIRES URGENT TREATMENT IN THE EMERGENCY DEPARTMENT. FURTHER EVALUATION AND TREATMENT OF YOUR CONDITION CAN WAIT UNTIL YOU ARE SEEN IN YOUR DOCTORS OFFICE WITHIN THE NEXT 1-2 DAYS. IT IS YOUR RESPONSIBILITY TO MAKE AN APPOINTMENT FOR FOLOW-UP CARE. IF YOU HAVE A PRIMARY DOCTOR --you should call your primary doctor and schedule an appointment IF YOU DO NOT HAVE A PRIMARY DOCTOR YOU CAN CALL OUR PHYSICIAN REFERRAL HOTLINE AT IF YOU CAN NOT AFFORD TO SEE A PHYSICIAN YOU CAN CHOSE FROM THE FOLLOWING [facility] [address] [facility]. [facility] [address] [facility] [place] [address] [facility]. [facility] [address] [facility]. [facility] [address] [facility]. [facility]. [address] Additional Instructions: FOLLOW UP WITH YOUR PRIMARY CARE PHYSICIAN TOMORROW.Return to this facility if you are not improving as expected. MING MIRZA PA-C December 19, 2018 10:06
== END 2018-12-19 08:00 | disposition home or self-care (01) ==
LOC: FTE 07:29
DX: Z76.0 Encounter for issue of repeat prescription (principal); Z96.651 Presence of right artificial knee joint
CPT/HCPCS: 99281

== ENCOUNTER 2018-12-31 08:24 | Emergency (ER) | payer OTHER ==
[~2018-12-31] VITALS: Ht 182.9 cm; Wt 85.8 kg
[~2018-12-31 08:24] MED LIST changes: +ALPR2TAB PO; +BUPR-75 PO; +FLUO20CA38 PO
[2018-12-31 08:29] VITALS: Ht 182.9 cm; Wt 85.8 kg
[2018-12-31] MEDS ORDERED: NAPR-985 PO (10:39)
[2018-12-31 11:20] VITALS: BP 135/88; PULSE 76; RESP 14
--- NOTE | 2018-12-31 14:14 | ERD ---
ER Documentation Chief Complaint Chief Complaint right knee pain, needs refill for xanax 2mg prn HPI 43-year-old male presenting with right knee pain. Patient has a history of knee surgery and bone replacement. He states over the last 2 days is been hurting. He denies any recent falls or traumatic injuries. Denies any numbness or tingling. Has not taken medications for pain. Pain is worse with walking upstairs. Denies other medical problems. NKDA. Surgical history knee surgery. Social history denies ROS All systems reviewed and are negative except as per history of present illness. Medications Home Meds Active Scripts Naproxen* (Naprosyn*) 500 Mg Tablet, 500 MG PO BID PRN for PAIN AND/OR INFLAMMATION, #30 TAB Prov:MING MIRZA PA-C 12/31/18 Aripiprazole* (Abilify*) 30 Mg Tablet, 30 MG PO DAILY, #30 TAB Prov:MING MIRZA PA-C 12/19/18 Alprazolam* (Xanax*) 2 Mg Tablet, 2 MG PO Q8H PRN for ANXIETY, #5 TAB Prov:MING MIRZA PA-C 12/19/18 Bupropion Hcl* (Wellbutrin XL*) 150 Mg Tab.sr.24h, 150 MG PO DAILY, #30 TAB.SA Prov:MING MIRZA PA-C 12/19/18 Fluoxetine Hcl* (Prozac*) 20 Mg Capsule, 60 MG PO DAILY, #90 CAP Prov:MING MIRZA PA-C 12/19/18 Divalproex Sodium* (Divalproex Sodium*) 500 Mg Tablet.dr, 500 MG PO BID, #28 TAB Prov:ROLAND EPPS 10/08/18 Aripiprazole* (Abilify*) 30 Mg Tablet, 30 MG PO DAILY, #30 TAB Prov:IMNG MIRZA PA-C 05/03/18 Allergies Allergies: Coded Allergies: No Known Allergy (Unverified , 10/22/18) PMhx/Soc History of Surgery: Yes (R knee replacement) Anesthesia Reaction: No Hx Neurological Disorder: No Hx Respiratory Disorders: No Hx Cardiac Disorders: No Hx Psychiatric Problems: Yes (depression, anxiety, schizophrenia, SI, 5150) Hx Miscellaneous Medical Probl: No Hx Alcohol Use: No Hx Substance Use: Yes (marijuana, meth) Hx Tobacco Use: No Smoking Status: Former smoker FmHx Family History: No diabetes, No coronary disease, No other Physical Exam Vitals Vital Signs Date Temp Pulse Resp B/P (MAP) Pulse Ox O2 O2 Flow FiO2 Time Delivery Rate 12/31/18 76 14 135/88 99 11:20 (104) 12/31/18 98.0 94 16 147/97 99 08:29 (114) Physical Exam GENERAL: The patient is well-appearing, well-nourished, in no acute distress CHEST: Clear to auscultation bilaterally. There are no rales, wheezes or rhonchi. HEART: Regular rate and rhythm. No murmurs, clicks, rubs or gallops. EXTREMITIES: Surgical scar noted to the right knee. No erythema or swelling. No deformity noted on exam. NEUROLOGIC: Alert and oriented. Cranial nerves II through XII intact. Motor strength in all 4 extremities with 5 out of 5 strength. Sensation grossly intact. Normal speech and gait. SKIN: There is no apparent rash or petechiae. The skin is warm and dry. Procedures/MDM DIAGNOSTIC IMAGING REPORT Patient: JANIE WILLSON : 1975 Age: 43 Sex: M MR #: [id number] DOS: 12/31/18 0935 Ordering MD: NURIS MIRZA PA-C Location: [facility] Room/Bed: PROCEDURE: Right knee x-ray CLINICAL INDICATION: knee pain TECHNIQUE: 3 views of the right knee were obtained. COMPARISON: None FINDINGS: The lateral view is overexposed. The patient is status post total knee replacement. The components are in satisfactory position and alignment. There are postsurgical changes in the soft tissues. No acute fracture or dislocation is seen. IMPRESSION: Postsurgical changes of the knee status post knee replacement. ER Course: Sidney wrap and crutches given the ED. DM: 43-year-old male presenting with knee pain. I have low suspicion for acute fracture dislocation. I have low suspicion for tendon or ligament rupture. Patient likely has chronic pain given he had surgical changes on the side. I have low suspicion for infectious process. Patient is discharged with strict ER precautions and told to follow-up with primary care within 1 to 2 days for close evaluation. Patient is told if symptoms change or worsen to return immediately to the ER. All questions answered at discharge Departure Diagnosis: Primary Impression: Knee pain Condition: Stable Patient Instructions: Knee Pain, Uncertain Cause Referrals: COMMUNITY CLINICS YOU HAVE RECEIVED A MEDICAL SCREENING EXAM AND THE RESULTS INDICATE THAT YOU DO NOT HAVE A CONDITION THAT REQUIRES URGENT TREATMENT IN THE EMERGENCY DEPARTMENT. FURTHER EVALUATION AND TREATMENT OF YOUR CONDITION CAN WAIT UNTIL YOU ARE SEEN IN YOUR DOCTORS OFFICE WITHIN THE NEXT 1-2 DAYS. IT IS YOUR RESPONSIBILITY TO MAKE AN APPOINTMENT FOR FOLOW-UP CARE. IF YOU HAVE A PRIMARY DOCTOR --you should call your primary doctor and schedule an appointment IF YOU DO NOT HAVE A PRIMARY DOCTOR YOU CAN CALL OUR PHYSICIAN REFERRAL HOTLINE AT IF YOU CAN NOT AFFORD TO SEE A PHYSICIAN YOU CAN CHOSE FROM THE FOLLOWING [facility] [address] [facility] [address] [facility] [address] [facility] [address] [facility] [address] [facility]. [facility] [address] [facility] Hours: Mon-Fri 9:00 AM - 5:00 PM Additional Instructions: FOLLOW UP WITH YOUR PRIMARY CARE PHYSICIAN TOMORROW.Return to this facility if you are not improving as expected. MING MIRZA PA-C December 31, 2018 14:14
== END 2018-12-31 11:21 | disposition home or self-care (01) ==
LOC: FTE 08:24
DX: M25.561 Pain in right knee (principal); Z87.891 Personal history of nicotine dependence
CPT/HCPCS: 73562; Z7502

== ENCOUNTER 2019-01-04 05:01 | Emergency (ER) | payer OTHER ==
[~2019-01-04] VITALS: Wt 84.8 kg
[~2019-01-04 05:01] MED LIST changes: +NAPR-985 PO
[2019-01-04 05:10] VITALS: BP 154/76; PULSE 95; RESP 18
--- NOTE | 2019-01-04 05:59 | ERD ---
ER Documentation Chief Complaint Chief Complaint MED REFILL HPI This is a 43-year-old male who presents here to the emergency department for a medication refill of his Xanax 2 mg daily as needed for his anxiety. Denies headache, head injury, loss of consciousness, dizziness, neck pain, neck stiffness, throat pain, difficulty swallowing, difficulty breathing lying flat, shoulder pain, chest pain, back pain, abdominal pain, nausea, vomiting, constipation, diarrhea, urinary symptoms, loss of bowel and bladder control, trauma, injury, falls, difficulty walking due to pain, numbness or tingling sensation, calf pain, recent travel, recent major surgery in the last 3 weeks, calf pain, recent long travel, recent exposure to any illness, recent antibiotic use in the last 3 months, fever, chills, seizures. Denies auditory/visual hallucinations/delusions. Not suicidal. Not homicidal. Has the capacity to decide for himself. Has good support system at home. Past medical history: Surgical history: Social: Denies smoking, use of alcoholic beverages, use of illegal drugs. ROS All systems reviewed and are negative except as per history of present illness. Medications Home Meds Active Scripts Alprazolam* (Xanax*) 2 Mg Tablet, 2 MG PO DAILY PRN for ANXIETY, #4 TAB Prov:MIKAYLA HUITRON 01/04/19 Naproxen* (Naprosyn*) 500 Mg Tablet, 500 MG PO BID PRN for PAIN AND/OR INFLAMMATION, #30 TAB Prov:MING MIRZA PA-C 12/31/18 Aripiprazole* (Abilify*) 30 Mg Tablet, 30 MG PO DAILY, #30 TAB Prov:MING MIRZA PA-C 12/19/18 Alprazolam* (Xanax*) 2 Mg Tablet, 2 MG PO Q8H PRN for ANXIETY, #5 TAB Prov:MING MIRZA PA-C 12/19/18 Bupropion Hcl* (Wellbutrin XL*) 150 Mg Tab.sr.24h, 150 MG PO DAILY, #30 TAB.SA Prov:MING MIRZA PA-C 12/19/18 Fluoxetine Hcl* (Prozac*) 20 Mg Capsule, 60 MG PO DAILY, #90 CAP Prov:MING MIRZA PA-C 12/19/18 Divalproex Sodium* (Divalproex Sodium*) 500 Mg Tablet., 500 MG PO BID, #28 TAB Prov:ROLAND EPPS 10/08/18 Aripiprazole* (Abilify*) 30 Mg Tablet, 30 MG PO DAILY, #30 TAB Prov:MING MIRZA PA-C 05/03/18 Allergies Allergies: Coded Allergies: No Known Allergy (Unverified , 10/22/18) PMhx/Soc History of Surgery: Yes (R knee replacement) Anesthesia Reaction: No Hx Neurological Disorder: No Hx Respiratory Disorders: No Hx Cardiac Disorders: No Hx Psychiatric Problems: Yes (depression, anxiety, schizophrenia, SI, 5150,PANIC ATTACKS ) Hx Miscellaneous Medical Probl: No Hx Alcohol Use: No Hx Substance Use: Yes (marijuana, meth) Hx Tobacco Use: No Physical Exam Vitals Vital Signs Date Temp Pulse Resp B/P (MAP) Pulse Ox O2 O2 Flow FiO2 Time Delivery Rate 01/04/19 97.5 95 18 154/76 99 05:10 (102) Physical Exam Const: No acute distress Head: Atraumatic Eyes: Normal Conjunctiva ENT: Normal External Ears, Nose and Mouth. Neck: Full range of motion. No meningismus. Resp: Clear to auscultation bilaterally Cardio: Regular rate and rhythm, no murmurs Abd: Soft, non tender, non distended. Normal bowel sounds Skin: No petechiae or rashes Back: No midline or flank tenderness Ext: No cyanosis, or edema Neur: Awake and alert. Denies auditory/visual hallucination/delusions. Not homicidal. Has the capacity to decide for himself. Has good support system at home. Psych: Normal Mood and Affect Procedures/MDM Diagnostic tests: Clinical exam. Treatment: Refuses. Re-evaluation: Denies auditory/visual hallucinations/delusions. Not suicidal. Not homicidal. Has the capacity to decide for himself. Has good support system at home. Differential diagnosis I have low suspicion for suicidal ideation, homicidal ideation, 5150. Final diagnosis: Medication refill. Prescription: Xanax. Follow-up with PCP in the next 24-48 hours. Follow-up with your psychiatrist in the next 24 to 48 hours. Come back here in the emergency department for any new symptoms or any worsening symptoms. All questions and concerns were answered. Patient and family members verbalized understanding and agreed with plan of care. Hemodynamically stable on discharge. Departure Diagnosis: Primary Impression: Encounter for medication refill Condition: Stable Additional Instructions: Follow-up with PCP in the next 24-48 hours. Follow-up with your psychiatrist in the next 24 to 48 hours. Come back here in the emergency department for any new symptoms or any worsening symptoms. MIKAYLA HUITRON January 04, 2019 05:59
[2019-01-04] MEDS ORDERED: ALPR2TAB PO (06:05)
== END 2019-01-04 06:45 | disposition home or self-care (01) ==
LOC: FTE 05:01
DX: Z76.0 Encounter for issue of repeat prescription (principal); Z96.651 Presence of right artificial knee joint
CPT/HCPCS: 99281

== ENCOUNTER 2019-01-18 07:12 | Emergency (ER) | payer OTHER ==
[~2019-01-18] VITALS: Ht 162.6 cm; Wt 70.0 kg
[2019-01-18 07:19] VITALS: BP 144/87; PULSE 98; RESP 18; Ht 162.6 cm; Wt 70.0 kg
--- NOTE | 2019-01-18 07:49 | ERD ---
ER Documentation Chief Complaint Chief Complaint Needs med refill for prozac, xanax and welbutrin HPI 43-year-old male presents for med refill states that he needs a refill for his Prozac, Xanax, and Wellbutrin. States that he does not have a primary care provider as he is moving to [place] but he will get one when he gets there. States that he feels fine denies any symptoms. Denies any suicidal homicidal ideation, hallucinations, fever, tremors, or acute psychosis. ROS All systems reviewed and are negative except as per history of present illness. Medications Home Meds Active Scripts Alprazolam* (Xanax*) 2 Mg Tablet, 2 MG PO DAILY PRN for ANXIETY, #4 TAB Prov:MIKAYLA HUITRON 01/04/19 Naproxen* (Naprosyn*) 500 Mg Tablet, 500 MG PO BID PRN for PAIN AND/OR INFLAMMATION, #30 TAB Prov:MING MIRZA PA-C 12/31/18 Aripiprazole* (Abilify*) 30 Mg Tablet, 30 MG PO DAILY, #30 TAB Prov:MING MIRZA PA-C 12/19/18 Alprazolam* (Xanax*) 2 Mg Tablet, 2 MG PO Q8H PRN for ANXIETY, #5 TAB Prov:MING MIRZA PA-C 12/19/18 Bupropion Hcl* (Wellbutrin XL*) 150 Mg Tab.sr.24h, 150 MG PO DAILY, #30 TAB.SA Prov:MING MIRZA PA-C 12/19/18 Fluoxetine Hcl* (Prozac*) 20 Mg Capsule, 60 MG PO DAILY, #90 CAP Prov:MING MIRZA PA-C 12/19/18 Divalproex Sodium* (Divalproex Sodium*) 500 Mg Tablet.dr, 500 MG PO BID, #28 TAB Prov:ROLAND EPPS 10/08/18 Aripiprazole* (Abilify*) 30 Mg Tablet, 30 MG PO DAILY, #30 TAB Prov:MING MIRZA PA-C 05/03/18 Allergies Allergies: Coded Allergies: No Known Allergy (Unverified , 01/18/19) PMhx/Soc History of Surgery: Yes (R knee replacement) Anesthesia Reaction: No Hx Neurological Disorder: No Hx Respiratory Disorders: No Hx Cardiac Disorders: No Hx Psychiatric Problems: Yes (depression, anxiety, schizophrenia, SI, 5150,PANIC ATTACKS ) Hx Miscellaneous Medical Probl: No Hx Alcohol Use: No Hx Substance Use: Yes (marijuana, meth) Hx Tobacco Use: No Smoking Status: Never smoker FmHx Family History: No diabetes, No coronary disease, No other Physical Exam Vitals Vital Signs Date Temp Pulse Resp B/P (MAP) Pulse Ox O2 O2 Flow FiO2 Time Delivery Rate 01/18/19 98.2 98 18 144/87 99 07:19 (106) Physical Exam Const: No acute distress Head: Atraumatic Eyes: Normal Conjunctiva ENT: Normal External Ears, Nose and Mouth. Neck: Full range of motion. No meningismus. Resp: Clear to auscultation bilaterally Cardio: Regular rate and rhythm, no murmurs Abd: Soft, non tender, non distended. Normal bowel sounds Skin: No petechiae or rashes Back: No midline or flank tenderness Ext: No cyanosis, or edema Neur: Awake and alert Psych: Normal Mood and Affect Procedures/MDM MDM: Advised patient that he needs to find a primary care provider as these medications need to be managed on an outpatient basis. Patient agreed to do so. In the meantime I can fill patient's Xanax for a few days only and refill his other psychiatric medications for short period of time until he gets into his primary care as I do not want him going through acute withdrawal symptoms. I will suspicion for homicidal suicidal ideation, acute psychosis, or any other emergent condition. Patient discharged with strict ER precautions. Patient advised to follow up with PMD. All questions answered at discharge. Departure Diagnosis: Primary Impression: Encounter for medication refill Condition: Cedric ROLAND EPPS January 18, 2019 07:49
[2019-01-18] MEDS ORDERED: BUPR-75 PO (07:51)
[2019-01-18] MEDS ORDERED: FLUO20CA38 PO (07:51)
[2019-01-18] MEDS ORDERED: ALPR2TAB PO (07:51)
== END 2019-01-18 08:04 | disposition home or self-care (01) ==
LOC: FTE 07:12
DX: Z76.0 Encounter for issue of repeat prescription (principal); Z96.651 Presence of right artificial knee joint
CPT/HCPCS: 99281

== ENCOUNTER 2019-02-15 06:51 | Emergency (ER) | payer OTHER ==
[~2019-02-15] VITALS: Ht 182.9 cm; Wt 77.0 kg
[2019-02-15 06:52] VITALS: BP 132/62; PULSE 98; RESP 18; Ht 182.9 cm; Wt 77.0 kg
[2019-02-15] MEDS ORDERED: ALPR2TAB PO (07:05)
[2019-02-15] MEDS ORDERED: IBUP-1542 PO (07:05)
[2019-02-15] MEDS ORDERED: BUPR-75 PO (07:06)
[2019-02-15] MEDS ORDERED: FLUO20CA22 PO (07:07)
--- NOTE | 2019-02-15 07:09 | ERD ---
ER Documentation Chief Complaint Chief Complaint pt is bib self needs med refills, HPI 43-year-old male is here requesting refills on Prozac, Wellbutrin, Xanax, and Motrin. He states he has appointment with primary care on March 06. He denies any suicidal or homicidal ideations. No other complaints. ROS All systems reviewed and are negative except as per history of present illness. Medications Home Meds Active Scripts Fluoxetine Hcl* (Fluoxetine Hcl*) 20 Mg Capsule, 60 MG PO DAILY for 30 Days, CAP Prov:SHILA GARCIA PA-C 02/15/19 Bupropion Hcl* (Wellbutrin XL*) 150 Mg Tab.sr.24h, 150 MG PO DAILY, #30 TAB.SA Prov:SHILA GARCIA PA-C 02/15/19 Ibuprofen* (Ibuprofen*) 600 Mg Tablet, 600 MG PO Q6, #30 TAB Prov:SHILA GARCIA PA-C 02/15/19 Alprazolam* (Xanax*) 2 Mg Tablet, 2 MG PO Q8H PRN for ANXIETY, #10 TAB Prov:SHILA GARCIA PA-C 02/15/19 Alprazolam* (Xanax*) 2 Mg Tablet, 2 MG PO Q8H PRN for ANXIETY, #5 TAB Prov:ROLAND EPPS 01/18/19 Bupropion Hcl* (Wellbutrin XL*) 150 Mg Tab.sr.24h, 150 MG PO DAILY, #30 TAB.SA Prov:ROLAND EPPS 01/18/19 Fluoxetine Hcl* (Prozac*) 20 Mg Capsule, 60 MG PO DAILY, #90 CAP Prov:ROLAND EPPS 01/18/19 Alprazolam* (Xanax*) 2 Mg Tablet, 2 MG PO DAILY PRN for ANXIETY, #4 TAB Prov:MIKAYLA HUITRON 01/04/19 Naproxen* (Naprosyn*) 500 Mg Tablet, 500 MG PO BID PRN for PAIN AND/OR INFLAMMATION, #30 TAB Prov:MING MIRZA PA-C 12/31/18 Aripiprazole* (Abilify*) 30 Mg Tablet, 30 MG PO DAILY, #30 TAB Prov:MING MIRZA PA-C 12/19/18 Divalproex Sodium* (Divalproex Sodium*) 500 Mg Tablet., 500 MG PO BID, #28 TAB Prov:ROLAND EPPS 10/08/18 Aripiprazole* (Abilify*) 30 Mg Tablet, 30 MG PO DAILY, #30 TAB Prov:MING MIRZA PA-C 05/03/18 Allergies Allergies: Coded Allergies: No Known Allergy (Unverified , 01/18/19) PMhx/Soc History of Surgery: Yes (R knee replacement) Anesthesia Reaction: No Hx Neurological Disorder: No Hx Respiratory Disorders: No Hx Cardiac Disorders: No Hx Psychiatric Problems: Yes (depression, anxiety, schizophrenia, SI, 5150,PANIC ATTACKS ) Hx Miscellaneous Medical Probl: No Hx Alcohol Use: No Hx Substance Use: Yes (marijuana, meth) Hx Tobacco Use: No FmHx Family History: No diabetes Physical Exam Vitals Vital Signs Date Temp Pulse Resp B/P (MAP) Pulse Ox O2 O2 Flow FiO2 Time Delivery Rate 02/15/19 98.3 98 18 132/62 97 06:52 (85) Physical Exam Const: No acute distress Head: Atraumatic Eyes: Normal Conjunctiva ENT: Normal External Ears, Nose and Mouth. Neck: Full range of motion. No meningismus. Resp: Clear to auscultation bilaterally Cardio: Regular rate and rhythm, no murmurs Procedures/MDM Patient given total #10 Xanax pills as I reviewed cures database and there was no suspicious activity. He was given month supply of the other medications. Patient counseled regarding my diagnostic impression and care plan. Prior to discharge all questions answered. Pt agrees with treatment plan and understands strict return precautions. Pt is instructed to follow up with primary care provider within 24-48 hours. Precautionary instructions provided including instructions to return to the ER if not improving or for any worsening or changing symptoms or concerns. Departure Diagnosis: Primary Impression: Encounter for medication refill Condition: Stable Patient Instructions: Taking Medicine Safely Additional Instructions: Call your primary care doctor TOMORROW for an appointment during the next 1-2 days.See the doctor sooner or return here if your condition worsens before your appointment time. SHILA GARCIA PA-C Feb 15, 2019 07:09
[2019-02-15] MEDS ORDERED: ARIP30TA4 PO (07:16)
== END 2019-02-15 07:43 | disposition home or self-care (01) ==
LOC: FTE 06:51
DX: Z76.0 Encounter for issue of repeat prescription (principal); Z96.651 Presence of right artificial knee joint
CPT/HCPCS: 99281

== ENCOUNTER 2019-03-12 07:28 | Emergency (ER) | payer OTHER ==
[~2019-03-12] VITALS: Ht 180.3 cm; Wt 80.0 kg
[~2019-03-12 07:28] MED LIST changes: +FLUO20CA22 PO; +IBUP-1542 PO
[2019-03-12 07:29] VITALS: BP 147/91; PULSE 100; RESP 16; Ht 180.3 cm; Wt 80.0 kg
[2019-03-12] MEDS ORDERED: ALPR2TAB PO (08:00)
[2019-03-12] MEDS ORDERED: ARIP30TA4 PO (08:00)
[2019-03-12] MEDS ORDERED: BUPR-75 PO (08:00)
--- NOTE | 2019-03-12 10:49 | ERD ---
ER Documentation Chief Complaint Chief Complaint medrefill for prozac, welbutrin, xanax, abilify HPI 43-year-old male presenting for medication refill. Patient is asking for Abilify 30 mg daily, Wellbutrin 150 mg extended release daily and Xanax 2 mg. Patient states he has psychiatric illness and is unable to see a psychiatrist as he has between insurances. Denies any suicidal homicidal ideations at this time. Denies medical problems. NKDA. Surgical history denies. Social history knee surgery. ROS All systems reviewed and are negative except as per history of present illness. Medications Home Meds Active Scripts Aripiprazole* (Abilify*) 30 Mg Tablet, 30 MG PO DAILY, #30 TAB Prov:MING MIRZA PA-C 03/12/19 Alprazolam* (Xanax*) 2 Mg Tablet, 2 MG PO DAILY PRN for ANXIETY, #2 TAB Prov:MING MIRZA PA-C 03/12/19 Bupropion Hcl* (Wellbutrin XL*) 150 Mg Tab.sr.24h, 150 MG PO DAILY, #30 TAB.SA Prov:MING MIRZA PA-C 03/12/19 Aripiprazole* (Abilify*) 30 Mg Tablet, 30 MG PO DAILY, #30 TAB Prov:SHILA GARCIA PA-C 02/15/19 Fluoxetine Hcl* (Fluoxetine Hcl*) 20 Mg Capsule, 60 MG PO DAILY for 30 Days, CAP Prov:SHILA GARCIA PA-C 02/15/19 Bupropion Hcl* (Wellbutrin XL*) 150 Mg Tab.sr.24h, 150 MG PO DAILY, #30 TAB.SA Prov:SHILA GARCIA PA-C 02/15/19 Ibuprofen* (Ibuprofen*) 600 Mg Tablet, 600 MG PO Q6, #30 TAB Prov:SHILA GARCIA PA-C 02/15/19 Alprazolam* (Xanax*) 2 Mg Tablet, 2 MG PO Q8H PRN for ANXIETY, #10 TAB Prov:SHILA GARCIA PA-C 02/15/19 Alprazolam* (Xanax*) 2 Mg Tablet, 2 MG PO Q8H PRN for ANXIETY, #5 TAB Prov:ROLAND EPPS 01/18/19 Bupropion Hcl* (Wellbutrin XL*) 150 Mg Tab.sr.24h, 150 MG PO DAILY, #30 TAB.SA Prov:ROLAND EPPS 01/18/19 Fluoxetine Hcl* (Prozac*) 20 Mg Capsule, 60 MG PO DAILY, #90 CAP Prov:ROLAND EPPS 01/18/19 Alprazolam* (Xanax*) 2 Mg Tablet, 2 MG PO DAILY PRN for ANXIETY, #4 TAB Prov:MIKAYLA HUITRON 01/04/19 Naproxen* (Naprosyn*) 500 Mg Tablet, 500 MG PO BID PRN for PAIN AND/OR INFLAMMATION, #30 TAB Prov:MING MIRZA PA-C 12/31/18 Aripiprazole* (Abilify*) 30 Mg Tablet, 30 MG PO DAILY, #30 TAB Prov:MING MIRZA PA-C 12/19/18 Divalproex Sodium* (Divalproex Sodium*) 500 Mg Tablet.dr, 500 MG PO BID, #28 TAB Prov:ROLAND EPPS 10/08/18 Aripiprazole* (Abilify*) 30 Mg Tablet, 30 MG PO DAILY, #30 TAB Prov:MING MIRZA PA-C 05/03/18 Allergies Allergies: Coded Allergies: No Known Allergy (Unverified , 01/18/19) PMhx/Soc History of Surgery: Yes (R knee replacement) Anesthesia Reaction: No Hx Neurological Disorder: No Hx Respiratory Disorders: No Hx Cardiac Disorders: No Hx Psychiatric Problems: Yes (depression, anxiety, schizophrenia, SI, PANIC ATTACKS ) Hx Miscellaneous Medical Probl: No Hx Alcohol Use: No Hx Substance Use: No Hx Tobacco Use: No Smoking Status: Never smoker FmHx Family History: No diabetes, No coronary disease, No other Physical Exam Vitals Vital Signs Date Temp Pulse Resp B/P (MAP) Pulse Ox O2 O2 Flow FiO2 Time Delivery Rate 03/12/19 98.2 100 16 147/91 99 07:29 (109) Physical Exam GENERAL: The patient is well-appearing, well-nourished, in no acute distres HEENT: Atraumatic. Conjunctivae are pink. Pupils equal, round, and reactive to light. There is no scleral icterus. Tympanic membranes clear bilaterally. Oropharynx clear. NECK: C-spine is soft and supple. There is no meningismus. There is no cervical lymphadenopathy. CHEST: Clear to auscultation bilaterally. There are no rales, wheezes or rhonchi. HEART: Regular rate and rhythm. No murmurs, clicks, rubs or gallops. Procedures/MDM MDM: 43-year-old male presenting for medication refill. Patient medications will be refilled however I only wrote 2 pills of Xanax given this is a high dose with patient was told to follow-up with primary care and given a list of clinics at departure. I have low suspicion for psychiatric emergency at this time. Patient denies any suicidal homicidal ideations and exam is non-concerning. Patient is discharged with strict ER precautions. All questions answered at discharge Departure Diagnosis: Primary Impression: Encounter for medication refill Condition: Stable Patient Instructions: Taking Medicine Safely Referrals: COMMUNITY CLINICS YOU HAVE RECEIVED A MEDICAL SCREENING EXAM AND THE RESULTS INDICATE THAT YOU DO NOT HAVE A CONDITION THAT REQUIRES URGENT TREATMENT IN THE EMERGENCY DEPARTMENT. FURTHER EVALUATION AND TREATMENT OF YOUR CONDITION CAN WAIT UNTIL YOU ARE SEEN IN YOUR DOCTORS OFFICE WITHIN THE NEXT 1-2 DAYS. IT IS YOUR RESPONSIBILITY TO MAKE AN APPOINTMENT FOR FOLOW-UP CARE. IF YOU HAVE A PRIMARY DOCTOR --you should call your primary doctor and schedule an appointment IF YOU DO NOT HAVE A PRIMARY DOCTOR YOU CAN CALL OUR PHYSICIAN REFERRAL HOTLINE AT IF YOU CAN NOT AFFORD TO SEE A PHYSICIAN YOU CAN CHOSE FROM THE FOLLOWING [facility] [address] [facility] [address] [employer] [facility] [address] [facility] [address] [facility]. [facility] [address] [facility] [facility]. [address] Additional Instructions: FOLLOW UP WITH YOUR PRIMARY CARE PHYSICIAN TOMORROW.Return to this facility if you are not improving as expected. MING MIRZA PA-C Mar 12, 2019 10:49
== END 2019-03-12 08:19 | disposition home or self-care (01) ==
LOC: FTE 07:28
DX: Z76.0 Encounter for issue of repeat prescription (principal); Z96.651 Presence of right artificial knee joint
CPT/HCPCS: 99281

== ENCOUNTER 2019-03-17 18:06 | Emergency (ER) | payer OTHER ==
[~2019-03-17] VITALS: Ht 180.3 cm; Wt 80.4 kg
[2019-03-17 18:08] VITALS: Ht 180.3 cm; Wt 80.4 kg
[2019-03-17] MEDS ORDERED: FLUO20CA38 PO (18:48)
[2019-03-17] MEDS ORDERED: ALPR2TAB PO (18:48)
--- NOTE | 2019-03-17 18:55 | ERD ---
ER Documentation Chief Complaint Chief Complaint here for med refill on xanax and prozac HPI 43-year-old male presenting for medication refill. Patient is asking for Xanax 2 mg as well as Prozac . Patient states he has psychiatric illness and is unable to see a psychiatrist as he has between insurances. States he does not take the Xanax every day but rather only when he is feeling anxious. He does not believe that he is physically dependent on the Xanax. Denies any suicidal or homicidal ideations at this time. Denies medical problems. NKDA. Surgical history denies. Social history knee surgery. ROS All systems reviewed and are negative except as per history of present illness. Medications Home Meds Active Scripts Fluoxetine Hcl* (Prozac*) 20 Mg Capsule, 60 MG PO DAILY, #90 CAP Prov:ROLAND EPPS 03/17/19 Alprazolam* (Xanax*) 2 Mg Tablet, 2 MG PO DAILY PRN for ANXIETY, #4 TAB Prov:ROLAND EPPS 03/17/19 Aripiprazole* (Abilify*) 30 Mg Tablet, 30 MG PO DAILY, #30 TAB Prov:MING MIRZA PA-C 03/12/19 Alprazolam* (Xanax*) 2 Mg Tablet, 2 MG PO DAILY PRN for ANXIETY, #2 TAB Prov:MING MIRZA PA-C 03/12/19 Bupropion Hcl* (Wellbutrin XL*) 150 Mg Tab.sr.24h, 150 MG PO DAILY, #30 TAB.SA Prov:MING MIRZA PA-C 03/12/19 Aripiprazole* (Abilify*) 30 Mg Tablet, 30 MG PO DAILY, #30 TAB Prov:SHILA GARCIA PA-C 02/15/19 Fluoxetine Hcl* (Fluoxetine Hcl*) 20 Mg Capsule, 60 MG PO DAILY for 30 Days, CAP Prov:SHILA GARCIA PA-C 02/15/19 Bupropion Hcl* (Wellbutrin XL*) 150 Mg Tab.sr.24h, 150 MG PO DAILY, #30 TAB.SA Prov:SHILA GARCIA PA-C 02/15/19 Ibuprofen* (Ibuprofen*) 600 Mg Tablet, 600 MG PO Q6, #30 TAB Prov:SHILA GARCIA PA-C 02/15/19 Alprazolam* (Xanax*) 2 Mg Tablet, 2 MG PO Q8H PRN for ANXIETY, #10 TAB Prov:SHILA GARCIA PA-C 02/15/19 Alprazolam* (Xanax*) 2 Mg Tablet, 2 MG PO Q8H PRN for ANXIETY, #5 TAB Prov:SUPRIYAROLAND 01/18/19 Bupropion Hcl* (Wellbutrin XL*) 150 Mg Tab.sr.24h, 150 MG PO DAILY, #30 TAB.SA Prov:ROLAND EPPS 01/18/19 Naproxen* (Naprosyn*) 500 Mg Tablet, 500 MG PO BID PRN for PAIN AND/OR INFLAMMATION, #30 TAB Prov:MING MIRZA PA-C 12/31/18 Aripiprazole* (Abilify*) 30 Mg Tablet, 30 MG PO DAILY, #30 TAB Prov:MING MIRZA PA-C 12/19/18 Divalproex Sodium* (Divalproex Sodium*) 500 Mg Tablet.dr, 500 MG PO BID, #28 TAB Prov:ROLAND EPPS 10/08/18 Aripiprazole* (Abilify*) 30 Mg Tablet, 30 MG PO DAILY, #30 TAB Prov:MING MIRZA PA-C 05/03/18 Allergies Allergies: Coded Allergies: No Known Allergy (Unverified , 01/18/19) PMhx/Soc History of Surgery: Yes (R knee replacement) Anesthesia Reaction: No Hx Neurological Disorder: No Hx Respiratory Disorders: No Hx Cardiac Disorders: No Hx Psychiatric Problems: Yes (depression, anxiety, schizophrenia, SI, PANIC ATTACKS ) Hx Miscellaneous Medical Probl: No Hx Alcohol Use: No Hx Substance Use: No Hx Tobacco Use: No Smoking Status: Never smoker FmHx Family History: No diabetes, No coronary disease, No other Physical Exam Vitals Vital Signs Date Temp Pulse Resp B/P (MAP) Pulse Ox O2 O2 Flow FiO2 Time Delivery Rate 03/17/19 97.9 89 16 134/87 99 18:08 (103) Physical Exam Const: No acute distress Head: Atraumatic Eyes: Normal Conjunctiva ENT: Normal External Ears, Nose and Mouth. Neck: Full range of motion. No meningismus. Resp: Clear to auscultation bilaterally Cardio: Regular rate and rhythm, no murmurs Abd: Soft, non tender, non distended. Normal bowel sounds Skin: No petechiae or rashes Back: No midline or flank tenderness Ext: No cyanosis, or edema Neur: Awake and alert Psych: Normal Mood and Affect Procedures/MDM MDM: Explained to patient that there is a risk of becoming physically dependent on benzodiazepines with continued use and I advised him to find other ways of dealing with his anxiety aside from taking benzodiazepines. Patient stated that he understands and is going to start seeing a therapist once his insurance situation gets worked out. He agreed to only take the Xanax if he feels very acute anxiety. Because of his history of refills I do not feel control giving him more than 4 pills. This time of low suspicion for suicidal or homicidal ideation, acute psychotic episode, acute panic attack, or any other emergent condition. At this time, patient is stable for discharge and outpatient management. I have instructed the patient to follow-up with his/her primary care physician in 1-2 days. I have discussed with the patient the possibility of needing to see a specialist for further workup and imaging studies if symptoms persist. I have instructed the patient to promptly return to the ER for any new or worsening symptoms including but not limited to increased pain, fever, nausea, vomiting, weakness or LOC. The patient and/or family expressed understanding of and agreement with this plan. All questions were answered. Home care instructions were provided. DISCLAIMER: Inadvertent spelling and grammatical errors are likely due to EHR/dictation software use and do not reflect on the overall quality of patient care. Also, please note that the electronic time recorded on this note does not necessarily reflect the actual time of the patient encounter. Departure Diagnosis: Primary Impression: Encounter for medication refill Condition: Stable Patient Instructions: Depression and Traumatic Brain Injury, Anxiety and Traumatic Brain Injury, Depression Affects Your Mind and Body, Treating Anxiety Disorders with Therapy, Treating Anxiety Disorders with Medication, Anxiety Reaction, Alprazolam Oral tablet Referrals: [facility] YOU HAVE RECEIVED A MEDICAL SCREENING EXAM AND THE RESULTS INDICATE THAT YOU DO NOT HAVE A CONDITION THAT REQUIRES URGENT TREATMENT IN THE EMERGENCY DEPARTMENT. FURTHER EVALUATION AND TREATMENT OF YOUR CONDITION CAN WAIT UNTIL YOU ARE SEEN IN YOUR DOCTORS OFFICE WITHIN THE NEXT 1-2 DAYS. IT IS YOUR RESPONSIBILITY TO MAKE AN APPOINTMENT FOR FOLOW-UP CARE. IF YOU HAVE A PRIMARY DOCTOR --you should call your primary doctor and schedule an appointment IF YOU DO NOT HAVE A PRIMARY DOCTOR YOU CAN CALL OUR PHYSICIAN REFERRAL HOTLINE AT IF YOU CAN NOT AFFORD TO SEE A PHYSICIAN YOU CAN CHOSE FROM THE FOLLOWING [facility] [address] [facility] [address] [facility] [facility] [address] [facility] [address] [facility] [address] [facility]. [facility]. [address] Additional Instructions: FOLLOW UP WITH YOUR PRIMARY CARE PHYSICIAN TOMORROW.Return to this facility if you are not improving as expected. ROLAND EPPS Mar 17, 2019 18:55
[2019-03-17 19:05] VITALS: BP 119/75; PULSE 85; RESP 18
== END 2019-03-17 19:06 | disposition home or self-care (01) ==
LOC: FTE 18:06
DX: Z76.0 Encounter for issue of repeat prescription (principal); Z96.651 Presence of right artificial knee joint
CPT/HCPCS: 99281

== ENCOUNTER 2019-04-04 09:05 | Emergency (ER) | payer OTHER ==
[~2019-04-04] VITALS: Ht 182.9 cm; Wt 81.7 kg
[2019-04-04 09:07] VITALS: BP 127/75; PULSE 77; RESP 20; Ht 182.9 cm; Wt 81.7 kg
--- NOTE | 2019-04-04 09:42 | ERD ---
ER Documentation Chief Complaint Chief Complaint MEDICATION REFILL ( WELLBUTRIN, AMBILIFY) HPI 43-year-old male presents to ED for medication refill. He states that he is taking Wellbutrin 150 mg, Abilify 30 mg, Xanax 2 mg daily. He states that he is been taking these medications for several years now. He denies any adverse side effects or reactions. When asked about why he ran out of his medications he gave me a story saying that he has a trust fund at a DIY and the bank would not pay for him to obtain his medications. Looking back at our medical records I se e the patient has been to this ER numerous times throughout this year for the similar reasons. Patient denies any thoughts of hurting himself or others when telling the patient that I will not refill the Xanax he got aggressive with me and stated that he does not want to talk to me anymore. Patient states he does not have a primary care provider or psychiatrist at this time but he is supposedly looking to find one this week. He states he is taking these medications for depression and anxiety. History and ROS is limited. ROS All systems reviewed and are negative except as per history of present illness. Medications Home Meds Active Scripts Aripiprazole* (Abilify*) 30 Mg Tablet, 30 MG PO DAILY, #14 TAB Prov:KASANDRA VARGAS PA-C 04/04/19 Bupropion Hcl* (Wellbutrin XL*) 150 Mg Tab.sr.24h, 150 MG PO DAILY for 14 Days, TAB.SA Prov:KASANDRA VARGAS PA-C 04/04/19 Fluoxetine Hcl* (Prozac*) 20 Mg Capsule, 60 MG PO DAILY, #90 CAP Prov:ROLAND EPPS 03/17/19 Alprazolam* (Xanax*) 2 Mg Tablet, 2 MG PO DAILY PRN for ANXIETY, #4 TAB Prov:ROLAND EPPS 03/17/19 Aripiprazole* (Abilify*) 30 Mg Tablet, 30 MG PO DAILY, #30 TAB Prov:MING MIRZA PA-C 03/12/19 Alprazolam* (Xanax*) 2 Mg Tablet, 2 MG PO DAILY PRN for ANXIETY, #2 TAB Prov:MING MIRZA PA-C 03/12/19 Bupropion Hcl* (Wellbutrin XL*) 150 Mg Tab.sr.24h, 150 MG PO DAILY, #30 TAB.SA Prov:MING MIRZA PA-C 03/12/19 Aripiprazole* (Abilify*) 30 Mg Tablet, 30 MG PO DAILY, #30 TAB Prov:SHILA GARCIA PA-C 02/15/19 Fluoxetine Hcl* (Fluoxetine Hcl*) 20 Mg Capsule, 60 MG PO DAILY for 30 Days, CAP Prov:SHILA GARCIA PA-C 02/15/19 Bupropion Hcl* (Wellbutrin XL*) 150 Mg Tab.sr.24h, 150 MG PO DAILY, #30 TAB.SA Prov:SHILA GARCIA PA-C 02/15/19 Ibuprofen* (Ibuprofen*) 600 Mg Tablet, 600 MG PO Q6, #30 TAB Prov:SHILA GARCIA PA-C 02/15/19 Alprazolam* (Xanax*) 2 Mg Tablet, 2 MG PO Q8H PRN for ANXIETY, #10 TAB Prov:SHILA GARCIA PA-C 02/15/19 Alprazolam* (Xanax*) 2 Mg Tablet, 2 MG PO Q8H PRN for ANXIETY, #5 TAB Prov:ROLAND EPPS 01/18/19 Bupropion Hcl* (Wellbutrin XL*) 150 Mg Tab.sr.24h, 150 MG PO DAILY, #30 TAB.SA Prov:ROLAND EPPS 01/18/19 Naproxen* (Naprosyn*) 500 Mg Tablet, 500 MG PO BID PRN for PAIN AND/OR INFLAMMATION, #30 TAB Prov:MING MIRZA PA-C 12/31/18 Aripiprazole* (Abilify*) 30 Mg Tablet, 30 MG PO DAILY, #30 TAB Prov:MING MIRZA PA-C 12/19/18 Divalproex Sodium* (Divalproex Sodium*) 500 Mg Tablet.dr, 500 MG PO BID, #28 TAB Prov:ROLAND EPPS 10/08/18 Aripiprazole* (Abilify*) 30 Mg Tablet, 30 MG PO DAILY, #30 TAB Prov:MING MIRZA PA-C 05/03/18 Allergies Allergies: Coded Allergies: No Known Allergy (Unverified , 01/18/19) PMhx/Soc History of Surgery: Yes (R knee replacement) Anesthesia Reaction: No Hx Neurological Disorder: No Hx Respiratory Disorders: No Hx Cardiac Disorders: No Hx Psychiatric Problems: Yes (depression, anxiety, schizophrenia, SI, PANIC ATTACKS ) Hx Miscellaneous Medical Probl: No Hx Alcohol Use: No Hx Substance Use: No Hx Tobacco Use: No Smoking Status: Never smoker FmHx Family History: No diabetes Physical Exam Vitals Vital Signs Date Temp Pulse Resp B/P (MAP) Pulse Ox O2 O2 Flow FiO2 Time Delivery Rate 04/04/19 97.1 77 20 127/75 99 09:07 (92) Physical Exam Const: No acute distress, disheveled Head: Atraumatic Resp: Clear to auscultation bilaterally Cardio: Regular rate and rhythm Abd: Soft, non tender, non distended. Psych: normal mood, aggressive when telling pt he will not get any Xanax. Pt did not talk to me after that. No thoughts of SI/HI Procedures/MDM ED COURSE: The patient was stable throughout ED course. I kept the patient informed of laboratory and diagnostic imaging results throughout the ED course. MEDICAL DECISION MAKING: Patient is a 43-year-old male presenting for medication refill. Patient is a frequent ER visitor. He has been to our ER for the same reasons several times already this year. Patient was asking for refills of Wellbutrin 150 mg and Abilify 30 mg. Patient was also asking for Xanax 2 mg however when I told him I will not prescribe this he got aggressive and would not talk to me anymore. At this time I think have low suspicion for patient hurting himself or others at this time. Patient does not meet requirements for inpatient holdings. This time of low suspicion for suicidal or homicidal ideation, acute psychotic episode, acute panic attack, or any other emergent condition. Vital signs were reviewed. Patient is afebrile. Patient was not hypoxic. Patient was hemodynamically stable. Patient was told to follow up with primary care for further care and management. PRESCRIPTION: Wellbutrin, Abilify DISCHARGE: At this time, patient is stable for discharge and outpatient management. I have instructed the patient to follow-up with their primary care physician in 1-2 days. I have discussed with the patient the possibility of needing to see a specialist for further workup and imaging studies if symptoms persist. I have instructed the patient to promptly return to the ER for any new or worsening symptoms including increased pain, fever, nausea, vomiting, weakness or LOC. The patient expressed understanding of and agreement with this plan. All questions were answered. Home care instructions were provided. Disclaimer: Inadvertent spelling and grammatical errors are likely due to EHR/dictation software use and do not reflect on the overall quality of patient care. Also, please note that the electronic time recorded on this note does not necessarily reflect the actual time of the patient encounter. Departure Diagnosis: Primary Impression: Encounter for medication refill Additional Impressions: Psychiatric diagnosis Benzodiazepine dependence Condition: Fair Patient Instructions: Taking Medicine Safely Referrals: [facility] YOU HAVE RECEIVED A MEDICAL SCREENING EXAM AND THE RESULTS INDICATE THAT YOU DO NOT HAVE A CONDITION THAT REQUIRES URGENT TREATMENT IN THE EMERGENCY DEPARTMENT. FURTHER EVALUATION AND TREATMENT OF YOUR CONDITION CAN WAIT UNTIL YOU ARE SEEN IN YOUR DOCTORS OFFICE WITHIN THE NEXT 1-2 DAYS. IT IS YOUR RESPONSIBILITY TO MAKE AN APPOINTMENT FOR FOLOW-UP CARE. IF YOU HAVE A PRIMARY DOCTOR --you should call your primary doctor and schedule an appointment IF YOU DO NOT HAVE A PRIMARY DOCTOR YOU CAN CALL OUR PHYSICIAN REFERRAL HOTLINE AT IF YOU CAN NOT AFFORD TO SEE A PHYSICIAN YOU CAN CHOSE FROM THE FOLLOWING [facility] [address] [facility]. [place] [address] [facility]. [facility] [address] [facility] [address] [facility] [address] [facility] [facility]. [address] [facility] [facility] YOU HAVE RECEIVED A MEDICAL SCREENING EXAM AND THE RESULTS INDICATE THAT YOU DO NOT HAVE A CONDITION THAT REQUIRES URGENT TREATMENT IN THE EMERGENCY DEPARTMENT. FURTHER EVALUATION AND TREATMENT OF YOUR CONDITION CAN WAIT UNTIL YOU ARE SEEN IN YOUR DOCTORS OFFICE WITHIN THE NEXT 1-2 DAYS. IT IS YOUR RESPONSIBILITY TO MAKE AN APPOINTMENT FOR FOLOW-UP CARE. IF YOU HAVE A PRIMARY DOCTOR --you should call your primary doctor and schedule and appointment IF YOU DO NOT HAVE A PRIMARY DOCTOR YOU CAN CALL OUR PHYSICIAN REFERRAL HOTLINE AT . IF YOU CAN NOT AFFORD TO SEE A PHYSICIAN YOU CAN CHOSE FROM THE FOLLOWING [facility] INSTITUTIONS: [facility] [address] [place] [address] [facility] [address] [place] [address] [facility] [address] [place] [address] Additional Instructions: Call a number in the packet for community clinic in order to establish care with a primary care provider Call your primary care doctor TOMORROW for an appointment during the next 1-2 days.See the doctor sooner or return here if your condition worsens before your appointment time. KASANDRA VARGAS PA-C Apr 04, 2019 09:42
== END 2019-04-04 09:53 | disposition home or self-care (01) ==
LOC: FTE 09:05
DX: Z76.0 Encounter for issue of repeat prescription (principal); F13.29 Sedative, hypnotic or anxiolytic dependence with unspecified sedative, hypnotic or anxiolytic-induced disorder; F99 Mental disorder, not otherwise specified
CPT/HCPCS: 99281

== ENCOUNTER 2019-04-29 08:45 | Emergency (ER) | payer OTHER ==
[~2019-04-29] VITALS: Ht 180.3 cm; Wt 82.3 kg
[~2019-04-29 08:45] MED LIST changes: +BACITUD TOP; +BUPR-165 PO
[2019-04-29 08:54] VITALS: BP 131/82; PULSE 89; RESP 18; Ht 180.3 cm; Wt 82.3 kg
== END 2019-04-29 10:01 | disposition home or self-care (01) ==
LOC: FTE 08:45
DX: Z76.0 Encounter for issue of repeat prescription (principal); Z96.651 Presence of right artificial knee joint
CPT/HCPCS: 99281

== ENCOUNTER 2019-05-04 20:21 | Emergency (ER) | payer OTHER ==
[~2019-05-04] VITALS: Ht 182.9 cm; Wt 80.9 kg
[~2019-05-04 20:21] MED LIST changes: +ALPR0.5T6 PO; +ARIP30TA22 PO; +ARIP5TAB14 PO; +BUPR150T11 PO; +BUPR300T48 PO; +FLUO10CA26 PO; +IBUP800T48 PO; +TRAZ-111 PO; +[UNRECOGNIZED DRUG - CODE] ORAL
[2019-05-04 20:23] VITALS: Ht 182.9 cm; Wt 80.9 kg
[2019-05-05 01:04] VITALS: BP 124/74; PULSE 82; RESP 16
== END 2019-05-05 01:06 | disposition home or self-care (01) ==
LOC: E/R 20:21
DX: R45.851 Suicidal ideations (principal); Z96.651 Presence of right artificial knee joint
CPT/HCPCS: 36415; 80053; 80307; 81003; 85025; Z7502; 99285

== ENCOUNTER 2019-05-09 14:26 | Emergency (ER) | payer OTHER ==
[~2019-05-09] VITALS: Ht 182.9 cm; Wt 81.0 kg
[2019-05-09 14:36] VITALS: Ht 182.9 cm; Wt 81.0 kg
[2019-05-09] MEDS ORDERED: LORAZEPAM 1 MG TAB PO ONE (15:30)
[2019-05-09 18:47] VITALS: BP 145/95; PULSE 87; RESP 21
[2019-05-09] MEDS ORDERED: QUETIAPINE 100 MG TAB PO SCH (21:00)
[2019-05-10] MEDS ORDERED: QUETIAPINE 100 MG TAB PO SCH (09:00)
== END 2019-05-09 18:52 | disposition home or self-care (01) ==
LOC: E/R 14:26
DX: R45.851 Suicidal ideations (principal); F17.210 Nicotine dependence, cigarettes, uncomplicated
CPT/HCPCS: 80053; 80307; 81001; 85025; Z7502; Z7610; 81003; 99283